=== PATIENT | female | born 1990 | race Caucasian/White ===

== ENCOUNTER 2020-05-24 00:55 | Emergency (ER) | payer SELFPAY ==
[2020-05-24 01:58] LABS: Urine Blood NEGATIVE (NEG); Urine Glucose NEGATIVE (NEG); Urine Protein NEGATIVE (NEG); Urine pH 5.5 (5.0-7.0)
[2020-05-24 02:08] LABS: Barbiturates NEGATIVE (NEGATIVE); Benzodiazepines NEGATIVE (NEGATIVE); Cocaine NEGATIVE (NEGATIVE); METHAMPHETAM POSITIVE (NEGATIVE); Methadone NEGATIVE (NEGATIVE); Opiates NEGATIVE (NEGATIVE); Phencyclidine NEGATIVE (NEGATIVE); THC Cannibis POSITIVE (NEGATIVE)
[2020-05-24 02:35] LABS: Absolute Lymphocytes (CBC) 3.3 K/uL (0.7-4.9); Basophils % 0.8 % (0-1.3); Hematocrit 41.3 % (36.0-45.0); Lymphocytes % 39.6 % (15.3-44.8); RBC Red Blood Cell Count 4.74 M/uL (3.86-4.86)
[2020-05-24 02:46] LABS: Protime INR 0.99
[2020-05-24 03:01] LABS: ALT/SGPT 27 U/L (12-78); AST/SGOT 18 U/L (15-37); Albumin 4.5 g/dL (3.4-5.0); Alkaline Phosphatase 83 U/L (45-117); BUN Blood Urea Nitrogen 17 mg/dL (7-18); Bicarbonate 29 mmol/L (21-32); Bilirubin Direct 0.2 mg/dL (0-0.2); Bilirubin Total 0.6 mg/dL (0.2-1.0); Glucose Level 86 mg/dL (74-106); Potassium 3.4 mmol/L (3.5-5.1); Protein, Total 8.7 g/dL (6.4-8.2); Sodium Level 138 mmol/L (136-145)
--- NOTE | 2020-05-24 03:19 | ER ---
Nurse's Notes [facility] Name: Donal Langston Age: 30 yrs Sex: Female : 1990 Arrival Date: 05/24/2020 Time: 01:03 Bed 16 Private MD: Diagnosis: Presentation: 05/24 01:17 Chief complaint:. Chief complaint: mental health deputy reports pt was found wandering em around [place] stating her sister and nephew was missing, mental health deputy reports that no one is missing, pt reports needing mental help, had some SI but has no plan at this time, pt is voluntary, has hx of using meth and marijuana, last used both yesterday morning at 8 AM. Coronavirus screen: Client denies travel out of the [place] in the last 14 days. Ebola Screen: Patient negative for fever greater than or equal to 101.5 degrees Fahrenheit, and additional compatible Ebola Virus Disease symptoms Patient denies exposure to infectious person. Patient denies travel to an Ebola-affected area in the 21 days before illness onset. No symptoms or risks identified at this time. Initial Sepsis Screen: Does the patient meet any 2 criteria? No. Patient's initial sepsis screen is negative. Does the patient have a suspected source of infection? No. Patient's initial sepsis screen is negative. Risk Assessment: Do you want to hurt yourself or someone else? Patient reports no desire to harm self or others. Onset of symptoms was May 24, 2020. 01:17 Method Of Arrival: Law Enforcement: mental health deputy em 01:17 Acuity: DELIA 2 em Historical: - Allergies: 01:22 No Known Allergies; em - Home Meds: 01:22 None [Active]; em - PMHx: 01:22 None; em - PSHx: 01:22 None; em - Immunization history:: Adult Immunizations up to date. - Social history:: Smoking status: Patient reports the use of cigarette tobacco products, smokes one-half pack cigarettes per day, Patient uses street drugs, marijuana, Methamphetamine (Meth) Patient/guardian denies using alcohol, The patient lives on the [address], The patient is unemployed. - Family history:: not pertinent. Screenin:50 Abuse screen: Denies threats or abuse. Denies injuries from another. Nutritional sf screening: No deficits noted. Tuberculosis screening: No symptoms or risk factors identified. Never had TB. Possible symptoms: None Risk factors: None. Fall Risk None identified. No fall in past 12 months (0 pts). No secondary diagnosis (0 pts). No IV (0 pts). Ambulatory Aid- None/Bed Rest/Nurse Assist (0 pts). Gait- Normal/Bed Rest/Wheelchair (0 pts) Mental Status- Oriented to own ability (0 pts). Total Reeves Fall Scale indicates No Risk (0-24 pts). Assessment: 01:50 General: Appears unkempt, Behavior is cooperative, anxious, restless, Smells of body sf odor. Denies feeling ill. Pain: Denies pain. Neuro: No deficits noted. Level of Consciousness is awake, alert, Oriented to person, place, time, situation. Cardiovascular: No deficits noted. Patient's skin is warm and dry. Respiratory: No deficits noted. Airway is patent Respiratory effort is even, unlabored, Respiratory pattern is regular, symmetrical. GI: No signs and/or symptoms were reported involving the gastrointestinal system. : No signs and/or symptoms were reported regarding the genitourinary system. Derm: No signs and/or symptoms reported regarding the dermatologic system. 03:00 Reassessment: Patient allowed to call family from nurse's station phone. 03:14 Reassessment: Patient grabbed a bag of belongings from nurse's station and ambulated sf out of the department wearing a gown without difficulty, attempted to stop patient to no avail. Patient left clothing behind. Clothing that was left given to security when they are available. Vital Signs: 01:17 BP 123 / 97; Pulse 76; Resp 18; Temp 98.3(O); Pulse Ox 100% on R/A; Weight 52.16 kg; em Height 5 ft. 3 in. (160.02 cm); Pain 0/10; 01:17 Body Mass Index 20.37 (52.16 kg, 160.02 cm) em ED Course: 01:03 Patient arrived in ED. mw2 01:04 Dev Pickering MD is Attending Physician. ma2 01:21 Triage completed. em 01:22 Arm band placed on. em 01:43 Ameya Van RN is Primary Nurse. sf 01:50 Patient has correct armband on for positive identification. Placed in gown. Bed in low sf position. Call light in reach. Door closed. Noise minimized. Visitors limited. Lights dimmed. 01:50 Initial lab(s) drawn, by me, sent to lab. sf 01:50 No provider procedures requiring assistance completed. sf 02:10 Missed attempt(s): 20 gauge in left antecubital area. 22 gauge in left antecubital area.tt3 02:13 Urine --Ancillary (enter results) Sent. sf 02:13 Urine Dipstick--Ancillary (enter results) Sent. sf Administered Medications: No medications were administered Outcome: 03:18 Patient left the ED. sf Signatures: Rocky Aranda RN RN Dev Pickering MD MD ma2 Jhonny Fernandez2 William Fraser tt3 Ameya Van RN RN sf Corrections: (The following items were deleted from the chart) 03:04 01:38 Social history: Patient/guardian denies using alcohol, street drugs, ma2 sf
--- NOTE | 2020-05-24 03:19 | EDPHYS ---
Physician Documentation [facility] Name: Donal Langston Age: 30 yrs Sex: Female : 1990 Arrival Date: 05/24/2020 Time: 01:03 Bed 16 Private MD: ED Physician Dev Pickering HPI: 05/24 01:38 This 30 yrs old Female presents to ER via Law Enforcement with complaints of suicidal ma2 ideation . 01:38 Onset: The symptoms/episode began/occurred gradually, 1 week(s) ago. Associated signs ma2 and symptoms: Pertinent negatives: ataxia, chest pain. Current symptoms: In the emergency department the patient's symptoms are unchanged from the initial presentation. The patient has experienced similar episodes in the past. Historical: - Allergies: : No Known Allergies; em - Home Meds: : None [Active]; em - PMHx: :22 None; em - PSHx: :22 None; em - Immunization history:: Adult Immunizations up to date. - Social history:: Smoking status: Patient reports the use of cigarette tobacco products, smokes one-half pack cigarettes per day, Patient uses street drugs, marijuana, Methamphetamine (Meth) Patient/guardian denies using alcohol, The patient lives on the [address], The patient is unemployed. - Family history:: not pertinent. ROS: 01:38 Constitutional: Negative for fever, chills, and weight loss. ma2 01:38 All other systems are negative. Exam: 01:38 Constitutional: This is a well developed, well nourished patient who is awake, alert, ma2 and in no acute distress. Chest/axilla: Normal chest wall appearance and motion. Nontender with no deformity. No lesions are appreciated. Cardiovascular: Regular rate and rhythm with a normal S1 and S2. No gallops, murmurs, or rubs. Normal PMI, no JVD. No pulse deficits. Respiratory: Lungs have equal breath sounds bilaterally, clear to auscultation and percussion. No rales, rhonchi or wheezes noted. No increased work of breathing, no retractions or nasal flaring. Abdomen/GI: Soft, non-tender, with normal bowel sounds. No distension or tympany. No guarding or rebound. No evidence of tenderness throughout. MS/ Extremity: Pulses equal, no cyanosis. Neurovascular intact. Full, normal range of motion. Neuro: Awake and alert, GCS 15, oriented to person, place, time, and situation. Cranial nerves II-XII grossly intact. Motor strength 5/5 in all extremities. Sensory grossly intact. Cerebellar exam normal. Normal gait. 04:11 Psych: Behavior/mood is suicidal. [facility] [place] 04:11 Psych: Behavior/mood is 04:11 Psych: Behavior/mood is anxious, depressed, Delusions/hallucinations no si. Vital Signs: 01:17 BP 123 / 97; Pulse 76; Resp 18; Temp 98.3(O); Pulse Ox 100% on R/A; Weight 52.16 kg; em Height 5 ft. 3 in. (160.02 cm); Pain 0/10; 01:17 Body Mass Index 20.37 (52.16 kg, 160.02 cm) em MDM: 01:38 Differential Diagnosis: electrolyte abnormality, alcohol intoxication, volume ma2 depletion, si. 04:11 Data reviewed: vital signs, nurses notes. Data reviewed: vital signs, nurses notes. [facility] [place] 04:[address] [facility] [place] 05/24 01:04 Order name: Acetaminophen [facility] [place] 05/24 01:04 Order name: Basic Metabolic Panel [facility] [place] 05/24 01:04 Order name: CBC with Diff [facility] [place] 05/24 01:04 Order name: ETOH Level [facility] [place] 05/24 01:04 Order name: Hepatic Function [facility] [place] 05/24 01:04 Order name: PT-INR [facility] [place] 05/24 01:04 Order name: Ptt, Activated [facility] [place] 05/24 01:04 Order name: Salicylate [facility] [place] 05/24 01:04 Order name: Urine Drug Screen [facility] [place] 05/24 01:45 Order name: Urine Dipstick--Ancillary (enter results) [facility] 05/24 01:45 Order name: Urine --Ancillary (enter results) [facility] 05/24 01:46 Order name: Urine Dipstick-Ancillary; Complete Time: 01:58 EDMS 05/24 01:46 Order name: Urine --Ancillary; Complete Time: 01:58 EDMS 05/24 01:04 Order name: Urine Test (obtain specimen); Complete Time: 01:42 [facility] [place] 05/24 01:04 Order name: EKG; Complete Time: 01:06 [facility] [place] 05/24 01:04 Order name: EKG - Nurse/Tech; Complete Time: 03:00 [facility] [place] 05/24 01:04 Order name: Urine Dipstick-Ancillary (obtain specimen); Complete Time: 01:42 [facility] [place] Administered Medications: No medications were administered Disposition: 05/24/20 03:18 Patient left the facility after being seen by provider. - Patient left due to (see nurse's notes). Signatures: Dispatcher [employer] [facility] Rocky Aranda RN RN Dev Pickering MD MD [facility] [place] Ameya Van RN RN sf Corrections: (The following items were deleted from the chart) 02:59 01:08 CORONAVIRUS+.VALERYZ ordered. [facility] 03:04 01:38 Social history: Patient/guardian denies using alcohol, street drugs, [facility] [place] sf 04:13 01:38 Constitutional: This is a well developed, well nourished patient who is awake, ma2 alert, and in no acute distress. Chest/axilla: Normal chest wall appearance and motion. Nontender with no deformity. No lesions are appreciated. Cardiovascular: Regular rate and rhythm with a normal S1 and S2. No gallops, murmurs, or rubs. Normal PMI, no JVD. No pulse deficits. Respiratory: Lungs have equal breath sounds bilaterally, clear to auscultation and percussion. No rales, rhonchi or wheezes noted. No increased work of breathing, no retractions or nasal flaring. Abdomen/GI: Soft, non-tender, with normal bowel sounds. No distension or tympany. No guarding or rebound. No evidence of tenderness throughout. MS/ Extremity: Pulses equal, no cyanosis. Neurovascular intact. Full, normal range of motion. Neuro: Awake and alert, GCS 15, oriented to person, place, time, and situation. Cranial nerves II-XII grossly intact. Motor strength 5/5 in all extremities. Sensory grossly intact. Cerebellar exam normal. Normal gait. [facility] [place] 04:13 01:38 Psych: Behavior/mood is suicidal, depressed, Oriented to person, place, time, ma2 Patient has no thoughts/intents to harm self or others. Judgement / Insight is normal. [facility] [place]
[2020-05-24 03:25] VITALS: BP 123/97; TEMP 98.3; O2SAT 100
--- NOTE | 2020-05-24 06:49 | EKG ---
Test Date: 2020-05-24 Test Time: 02:30:38 Die Sinking Machine Operator: TLT MEASUREMENT RESULTS: Intervals: Rate: 82 WI: QRSD: 114 QT: 448 QTc: 523 Poyen: P: WI: QRS: 80 T: 83 INTERPRETIVE STATEMENTS: Atrial fibrillation Anteroseptal infarct, age undetermined Prolonged QT Abnormal ECG No previous ECG available for comparison Electronically Signed On 05-24-20 06:49:00 THEATRE PROFESSOR by Micha Farias
== END 2020-05-24 03:18 | disposition left against medical advice (07) ==
LOC: ER 00:55
DX: R45.851 Suicidal ideations (principal); F17.210 Nicotine dependence, cigarettes, uncomplicated; Z20.822 Contact with and (suspected) exposure to COVID-19
CPT/HCPCS: 36415; 80048; 80076; 80307; 80320; 80329; 81003; 81025; 85025; 85610; 85730; 93005; 99282; U0003

== ENCOUNTER 2020-05-24 15:53 | Emergency (ER) | payer SELFPAY ==
--- NOTE | 2020-05-24 16:11 | EDPHYS ---
Physician Documentation [facility] Name: Donal Langston Age: 30 yrs Sex: Female : 1990 Arrival Date: 05/24/2020 Time: 15:59 Bed 25 Private MD: ED Physician Tashi Cooper HPI: 05/24 16:06 This 30 yrs old Female presents to ER via Unassigned with complaints of anxiety. jmm 16:06 The patient presents to the emergency department with anxiety. Onset: The jmm symptoms/episode began/occurred 1 day(s) ago. The patient has not experienced similar symptoms in the past. This is a 30 year old female with no known chronic medical conditions that presents to the ED with complaints of anxiety secondary to an undisclosed action she had performed in the past. Patient was evaluated yesterday and left AMA. Denies SI or HI. Historical: - Allergies: 16:23 No Known Allergies; vg1 - Immunization history:: Adult Immunizations up to date. ROS: 16:06 Constitutional: Negative for fever, chills, and weight loss, Cardiovascular: Negative jmm for chest pain, palpitations, and edema, Respiratory: Negative for shortness of breath, cough, wheezing, and pleuritic chest pain. 16:06 Psych: Positive for anxiety. 16:06 All other systems are negative. Exam: 16:06 Constitutional: This is a well developed, well nourished patient who is awake, alert, jmm and in no acute distress. Head/Face: atraumatic. Eyes: EOMI, no conjunctival erythema appreciated ENT: Moist Mucus Membranes Neck: Trachea midline, Supple Chest/axilla: Normal chest wall appearance and motion. Cardiovascular: Regular rate and rhythm. No edema appreciated Respiratory: Normal respirations, no respiratory distress appreciated Abdomen/GI: Non distended, soft Back: Normal ROM Skin: General appearance color normal MS/ Extremity: Moves all extremities, no obvious deformities appreciated, no edema noted to the lower extremities Neuro: Awake and alert, normal gait 16:06 Psych: Behavior/mood is pleasant, cooperative, anxious. Vital Signs: 16:19 BP 112 / 75; Pulse 79; Resp 16; Temp 98.4; Pulse Ox 100% on R/A; vg1 MDM: 16:02 Patient medically screened. [facility] 16:09 Data reviewed: vital signs, nurses notes. Counseling: I had a detailed discussion with kandy the patient and/or guardian regarding: the historical points, exam findings, and any diagnostic results supporting the discharge/admit diagnosis, the need for outpatient follow up, to return to the emergency department if symptoms worsen or persist or if there are any questions or concerns that arise at home. ED course: Patient is alert and non toxic in appearance in the ED. Denies SI or HI. Patient given information for psychiatric follow up. Patient is otherwise given strict return precautions. Patient understood and agrees with the plan of care. . Administered Medications: No medications were administered Disposition: 18:52 Co-signature as Attending Physician, Tashi Cooper MD I agree with the assessment and tw4 plan of care. Disposition: 05/24/20 16:11 Discharged to Home. Impression: Person with feared health complaint in whom no diagnosis is made. - Condition is Stable. - Medication Reconciliation Form, Thank You Letter, Antibiotic Education, Prescription Opioid Use form. - Follow up: Private Physician; When: 2 - 3 days; Reason: Recheck today's complaints, Continuance of care, Re-evaluation by your physician. Follow up: Baldo Martinez MD; When: As needed; Reason: Recheck today's complaints, Continuance of care, Re-evaluation by your physician. Signatures: Juma Lewis PA PA jmm Wadley, Terrence, MD MD tw4 Sheila Ortiz, RN RN vg1 Corrections: (The following items were deleted from the chart) 16:12 16:11 05/24/2020 16:11 Discharged to Home. Impression: Person with feared health [facility] complaint in whom no diagnosis is made. Condition is Stable. Forms are Medication Reconciliation Form, Thank You Letter, Antibiotic Education, Prescription Opioid Use. Follow up: Private Physician; When: 2 - 3 days; Reason: Recheck today's complaints, Continuance of care, Re-evaluation by your physician. [facility] 16:30 16:12 05/24/2020 16:11 Discharged to Home. Impression: Person with feared health vg1 complaint in whom no diagnosis is made. Condition is Stable. Forms are Medication Reconciliation Form, Thank You Letter, Antibiotic Education, Prescription Opioid Use. Follow up: Private Physician; When: 2 - 3 days; Reason: Recheck today's complaints, Continuance of care, Re-evaluation by your physician. Follow up: Baldo Martinez; When: As needed; Reason: Recheck today's complaints, Continuance of care, Re-evaluation by your physician. kandy
--- NOTE | 2020-05-24 16:31 | ER ---
Nurse's Notes [facility] Name: Donal Langston Age: 30 yrs Sex: Female : 1990 Arrival Date: 05/24/2020 Time: 15:59 Bed 25 Private MD: Diagnosis: Person with feared health complaint in whom no diagnosis is made Presentation: 05/24 16:19 Chief complaint: EMS states: Patient was seen by police officers walking around. Police vg1 called EMS. EMS stated patient was seen last admitted last night and left AMA. Was seen for psych and visual hallucinations. Coronavirus screen: Client denies travel out of the [place] in the last 14 days. Ebola Screen: Patient negative for fever greater than or equal to 101.5 degrees Fahrenheit, and additional compatible Ebola Virus Disease symptoms. Initial Sepsis Screen: Does the patient meet any 2 criteria? No. Patient's initial sepsis screen is negative. Does the patient have a suspected source of infection? No. Patient's initial sepsis screen is negative. Risk Assessment: Do you want to hurt yourself or someone else? Patient reports no desire to harm self or others. Onset of symptoms was May 24, 2020. 16:19 Method Of Arrival: EMS: [facility] vg1 16:19 Acuity: DELIA 5 vg1 Triage Assessment: 16:23 General: Appears in no apparent distress. comfortable, Behavior is calm, cooperative. vg1 Pain: Denies pain. EENT: No deficits noted. Neuro: Level of Consciousness is awake, alert, obeys commands, Oriented to person, place, time, situation. Cardiovascular: Patient's skin is warm and dry. Respiratory: Airway is patent Respiratory effort is even, unlabored. Derm: Skin is intact, is healthy with good turgor. Musculoskeletal: Circulation, motion, and sensation intact. Historical: - Allergies: 16:23 No Known Allergies; vg1 - Immunization history:: Adult Immunizations up to date. Screenin:23 Abuse screen: Denies threats or abuse. Nutritional screening: No deficits noted. vg1 Tuberculosis screening: No symptoms or risk factors identified. Fall Risk None identified. Assessment: 16:24 Reassessment: See triage note. vg1 Vital Signs: 16:19 BP 112 / 75; Pulse 79; Resp 16; Temp 98.4; Pulse Ox 100% on R/A; vg1 ED Course: 15:59 Patient arrived in ED. 16:01 Juma Lewis PA is PHCP. [facility] 16:01 Tashi Cooper MD is Attending Physician. [facility] 16:01 Sheila Ortiz, RN is Primary Nurse. vg1 16:12 Baldo Martinez MD is Referral Physician. [facility] 16:22 Triage completed. vg1 16:23 Patient has correct armband on for positive identification. Placed in gown. Bed in low vg1 position. Call light in reach. Side rails up X 1. 16:30 No provider procedures requiring assistance completed. Patient did not have IV access vg1 during this emergency room visit. Administered Medications: No medications were administered Outcome: 16:11 Discharge ordered by . [facility] 16:30 Discharged to home ambulatory. vg1 16:30 Condition: good 16:30 Discharge instructions given to patient, Instructed on discharge instructions, follow up and referral plans. Demonstrated understanding of instructions, follow-up care. 16:30 Patient left the ED. vg1 Signatures: Juma Lewis PA PA jmm Smirch, Shelby, JADON RN Sheila Ortiz, RN RN vg1
[2020-05-24 16:36] VITALS: BP 112/75; TEMP 98.4; O2SAT 100
== END 2020-05-24 16:30 | disposition home or self-care (01) ==
LOC: ER 15:53
DX: R69 Illness, unspecified (principal); Z53.21 Procedure and treatment not carried out due to patient leaving prior to being seen by health care provider
CPT/HCPCS: 99283

== ENCOUNTER 2021-05-04 22:47 | Emergency (ER) | payer OTHER, SELFPAY ==
--- OUTSIDE RECORDS SUMMARY | 2021-05-04 22:50 | XMS REPORT | Continuity of Care Document ---
:1990 Author Organization [facility] t Address [address] [place] [address] Care Team Providers Name Role Phone Livan Wagner Primary Care Physician JASON Attending Clinician Unavailable Alyson SILVA Attending Clinician Unavailable Alyson Silva MD Attending Clinician Sascha TALBOT Attending Clinician SASCHA Attending Clinician Unavailable Payers Payer Name Policy Type Policy Number Effective Date Expiration Date S ource Problems This patient has no known problems. Allergies, Adverse Reactions, Alerts Allergy Allergy Status Severity Reaction(s) Onset Inactive Treating Comm ents Source Name Type Date Date Clinician NO KNOWN Drug Active Univers ALLERGIE Class ity of [facility] Social History Social Habit Start Date Stop Date Quantity Comments Source Exposure to Not sure [facility] SARS-CoV-2 (event) Medica l Branch Sex Assigned At [birth year] [facility] 00:00:00 00:00:00 [facility] Smoking Status Start Date Stop Date Source Unknown if ever smoked [facility] Medications Ordered Filled Start Stop Current Ordering Indication Dosage Frequency Signature Comments Components Source Medication Medication Date Date Medication? Clinician (SIG) Name Name No known 2020-03 No Univers medications 04-15 ity of 20:48: [address] NaCl 0.9% 1000mL at 999 Uni vers (NS) bolus 3-13 03-13 mL/hr, ity of infusion 20:45: 22:16 1,000 mL, Candido as 1,000 mL 00 :00 IV Medical Infusion, Branch ONCE, 1 dose, 05/25/20 at 1445, STAT Vital Signs Vital Name Observation Time Observation Value Comments Source Systolic blood 2021-02-13 02:47:00 124 mm[Hg] Univer [facility] of [facility] Diastolic blood 2021-02-13 02:47:00 84 mm[facility]Hg[facility] 2021-02-13 02:47:00 73 /min [facility] Body temperature 2021-02-13 02:47:00 36.72 Sara [facility] Res[facility] rate 2021-02-13 02:47:00 18 /min [facility] Body height 2021-02-13 02:47:00 160 cm [facility] Body weight 2021-02-13 02:47:00 56.7 kg [facility] BMI 2021-02-13 02:47:00 22.14 kg/m2 [facility] Oxygen saturation in 2021-02-13 02:47:00 100 /min University of Arterial blood by [facility] Pulse oximetry Branch Systolic blood 2020-05-25 21:00:00 102 mm[Hg] Univer sity [facility] Diastolic blood 2020-05-25 21:00:00 64 mm[Hg] [facility] Heart rate 2020-05-25 21:00:00 81 /min [facility] Respiratory rate 2020-05-25 21:00:00 14 /min Univ [facility] Oxygen saturation in 2020-05-25 21:00:00 100 /min [facility] of Arterial blood by [facility] Pulse oximetry Branch Body temperature 2020-05-25 19:37:00 36.33 [facility] Body weight 2020-05-25 19:37:00 52.164 kg [facility] Procedures Procedure Date / Time Performed Performing Clinician Sourc e LIPASE 2021-02-13 03:00:00 Pedro Silva [facility] TROPONIN I 2021-02-13 03:00:00 Pedro Silva [facility] COMP. METABOLIC PANEL 2021-02-13 03:00:00 Pedro Silva [facility] ([id number]) Medical Branch CBC WITH DIFF 2021-02-13 03:00:00 Pedro Silva [facility] NOTICE OF PRIVACY 2021-02-13 02:33:01 Doctor Unassigned, No Univ [facility] PRACTICES Name [facility] CONSENT/REFUSAL FOR 2021-02-13 02:32:44 Doctor Unassigned, No [facility] DIAGNOSIS AND Name [facility] TREATMENT POCT TEST 2020-05-25 22:03:00 Salud Pinzon [facility] CREATINE KINASE 2020-05-25 20:10:00 Sascha [facility] LIPASE 2020-05-25 20:10:00 Sascha [facility] MAGNESIUM 2020-05-25 20:10:00 [facility] HEPATIC FUNCTION 2020-05-25 20:10:00 Sascha [facility] PANEL ([id number]) [facility] (ALB,T.PRO,BILI T,BU/BC,ALT,AST,ALK PHOS) BASIC METABOLIC PANEL 2020-05-25 20:10:00 Salud Pinzon [facility] (NA, K, CL, CO2, Medical Branch GLUCOSE, BUN, CREATININE, CA) CBC WITH DIFF 2020-05-25 20:10:00 [facility] Encounters Start End Encounter Admission Attending Care Care Encounter Source Date/Time Date/Time Type Type Clinicians Facility Department ID 2020-11-26 Outpatient A[facility] [id number] [facility] 19:24:14 HARISH 2021-02-12 2021-02-12 Emergency X [facility] ERT [id number] Univers 20:51:00 23:13:00 PEDRO kauffman [facility] 2021-02-12 2021-02-12 Emergency [facility] [id number] Univers 20:51:00 23:13:00 [facility] [id number] daly [facility] [id number] [facility] [id number] [place] [address] Branch 2020-05-25 2020-05-25 Emergency [facility] [id number] Univers 13:31:00 16:18:00 Salud [place] [id number] [place] [id number] [facility] [id number] [address] 2020-05-25 2020-05-25 Emergency [facility] [id number] Univers 13:31:00 13:31:00 SALUD aleamonalisa [facility] Results Test Description Test Time Test Comments Results Result Comments Source TROPONIN I 2021-02-13 03:46:48 Test Item Value Reference Range Interpretation Comme nts TROPONIN I (test code = 0.000 ng/mL See_Comment [Au tomated message] The 5678569290) system which ge nerated this result tra nsmitted reference range : <=0.034. The reference r jagdeep was not used to int erpret this result as normal/abnormal . KARLA (test code = KARLA) Reference (Normal) Range (defined by the 99th percentile reference limit): <= 0.034 ng/mL Note: Cardiac troponin begins to rise 3-4 hours after the onset of ischemia. Repeat in 4-6 hours if the sample was drawn within 3-4 hours of the onset of the symptom and found normal. Diagnosis of myocardial injury is made with acute changes in cTn concentrations with at least one serial sample above the 99th percentile upper reference limit (URL), taken together with the patient's clinical presentation. Biotin has been reported to cause a negative bias, interpret results relative to patient's use of biotin. Lab Interpretation Normal (test code = 93550-7) [facility] ([id number])2021-02-13 03:37:12 Test Item Value Reference Range Interpretation Comments NA (test code = 136 mmol/L 135-145 8288216070) K (test code = 4.2 mmol/L 3.5-5.0 0740926320) CL (test code = 101 mmol/L 98-108 1291077290) CO2 TOTAL (test code 30 mmol/L 23-31 = 5888862373) AGAP (test code = 2-16 6246999102) BUN (test code = 13 mg/dL 7-23 0913162109) GLUCOSE (test code = 100 mg/dL 70-110 4461686441) CREATININE (test code 0.80 mg/dL 0.50-1.04 = 7313998625) TOTAL BILI (test code 0.3 mg/dL 0.1-1.1 = 4069264336) CALCIUM (test code = 9.5 mg/dL 8.6-10.6 4623248940) T PROTEIN (test code 7.1 g/dL 6.3-8.2 = 7448183352) ALBUMIN (test code = 4.3 g/dL 3.5-5.0 3949848030) ALK PHOS (test code = 51 U/L 34-122 8443445277) ALTv (test code = 10 U/L 5-35 2-6) AST(SGOT) (test code 21 U/L 13-40 = 0810170741) eGFR (test code = mL/min/1.73m2 3595881026) KARLA (test code = KARLA) Association of Glomerular Filtration Rate (GFR) and Staging of Kidney Disease* + + +- +| GFR (mL/min/1.73 m2) ?| With Kidney Damage ?| ?Without Kidney Damage+ ------+ ----+ ------+| ?>90 ?| ?Stage one ?| ? Normal ?+ -+ + -+| ?60-89 ?| ?Stage two ?| ? Decreased GFR ? + + +- +| ?30-59 ?| ?Stage three ?| ? Stage three ? + + +- +| ?15-29 ?| ?Stage four ? | ? Stage four ?+ -+ + -+| ?<15 (or dialysis) ? ?| ?Stage five ? | ? Stage five ?+ -+ + -+ *Each stage assumes the associated GFR level has been in effect for at least three months. ?Stages 1 to 5, with or without kidney disease, indicate chronic kidney disease. Notes: Determination of stages one and two (with eGFR >59mL/min/1.73 m2) requires estimation of kidney damage for at least three months as defined by structural or functional abnormalities of the kidney, manifested by either:Pathological abnormalities or Markers of kidney damage (including abnormalities in the composition of the blood or urine or abnormalities in imaging tests). [facility], [id number] 03:37:11 Test Item Value Reference Range Interpretation Comments LIPASE (test code = 3326115581) 77 U/L 0-220 Lab Interpretation (test code = Normal 95959-4) [facility] [id number] 03:15:25 Test Item Value Reference Range Interpretation Comments WBC (test code = See_Comment [Automated 6690-2) message] The sy stem which generated this result transmitted reference range : 4.30 - 11.10 10*3/?L. The reference range was not used to interpret this result as normal/abnormal . RBC (test code = See_Comment [Automated 789-8) message] The sy stem which generated this result transmitted reference range : 3.93 - 5.25 10*6/?L. The reference range was not used to interpret this result as normal/abnormal . HGB (test code = 12.2 g/dL 11.6-15.0 718-7) HCT (test code = 37.3 % 35.7-45.2 4544-3) MCV (test code = 91.0 fL 80.6-95.5 787-2) MCH (test code = 29.8 pg 25.9-32.8 785-6) MCHC (test code = 32.7 g/dL 31.6-35.1 786-4) RDW-SD (test code = 38.6 fL 39.0-49.9 L 50176-5) RDW-CV (test code = 11.6 % 12.0-15.5 L 788-0) PLT (test code = See_Comment [Automated 777-3) message] The sy stem which generated this result transmitted reference range : 166 - 358 10*3/ ?L. The reference r jagdeep was not used to interpret this result as normal/abnormal . MPV (test code = 11.2 fL 9.5-12.9 83932-0) NRBC/100 WBC (test See_Comment [Automat ed code = 8119498433) message] The system which generated this result transmitted reference range : 0.0 - 10.0 /100 WBCs. The refer ence range was not u sed to interpret th is result as normal/abnormal . NRBC x10^3 (test code <0.01 See_Comment [Auto mated = 2759858142) message] The s ystem which generated this result transmitted reference range : 10*3/?L. The reference range was not used to interpret this result as normal/abnormal . GRAN MAT (NEUT) % 56.6 % (test code = 770-8) IMM GRAN % (test code 0.30 % = 2448652227) LYMPH % (test code = 30.3 % 736-9) MONO % (test code = 10.3 % 5905-5) EOS % (test code = 2.0 % 713-8) BASO % (test code = 0.5 % 706-2) GRAN MAT x10^3(ANC) 4.34 10*3/uL 1.88-7.09 (test code = 9594044861) IMM GRAN x10^3 (test <0.03 0.00-0.06 code = 0325255086) LYMPH x10^3 (test code 2.32 10*3/uL 1.32-3.29 = 731-0) MONO x10^3 (test code 0.79 10*3/uL 0.33-0.92 = 742-7) EOS x10^3 (test code = 0.15 10*3/uL 0.03-0.39 711-2) BASO x10^3 (test code 0.04 10*3/uL 0.01-0.07 = 704-7) Lab Interpretation Abnormal (test code = 23478-0) [facility] [id number] 22:03:00 Test Item Value Reference Range Interpretation Comments POCT PREG (test code = 1605) negative On board controls acceptable with positive C Line (test code = 3574) POCT PREG LOT # (test code = 3575) [id number] POCT PREG TEST DATE (test 01-12-2022 code = 3576) Lab Interpretation (test code = Normal 98364-5) [facility] (ALB, T.PRO, BILI T, BU/BC, ALT, AST, ALK PHOS)2020-05-25 20:35:00 Test Item Value Reference Range Interpretation Comments TOTAL BILI (test code = 1178264761) 0.8 mg/dL 0.1-1.1 BILI UNCON (test code = 2585099800) 0.7 mg/dL 0.1-1.1 BILI CONJ (test code = 4965428126) 0.0 mg/dL 0.0-0.3 T PROTEIN (test code = 4329477515) 7.4 g/dL 6.3-8.2 ALBUMIN (test code = 8865900978) 4.6 g/dL 3.5-5.0 ALK PHOS (test code = 8449562060) 59 U/L 34-122 ALTv (test code = 1742-6) 14 U/L 5-35 AST(SGOT) (test code = 6242189661) 31 U/L 13-40 Lab Interpretation (test code = Normal 81131-1) [facility]2021-03-13 20:35:00 Test Item Value Reference Range Interpretation Comments MAGNESIUM (test code = 4782702228) 1.7 mg/dL 1.7-2.4 Lab Interpretation (test code = Normal 59277-9) [facility] (NA, K, CL, CO2, GLUCOSE, BUN, CREATININE, CA)2020-05-25 20:34:40 Test Item Value Reference Range Interpretation Comments NA (test code = 138 mmol/L 135-145 2491623739) K (test code = 4.1 mmol/L 3.5-5.0 8386417900) CL (test code = 105 mmol/L 98-108 7621491773) CO2 TOTAL (test code = 26 mmol/L 23-31 8464655699) AGAP (test code = 2-16 6315859174) BUN (test code = 13 mg/dL 7-23 7792943196) GLUCOSE (test code = 88 mg/dL 70-110 2747809095) CREATININE (test code 0.68 mg/dL 0.50-1.04 = 5869327646) CALCIUM (test code = 8.7 mg/dL 8.6-10.6 3544127061) eGFR Calculation mL/min/1.73m2 (Non-) (test code = 1706014260) eGFR Calculation mL/min/1.73m2 () (test code = 9606988604) KARLA (test code = KARLA) Association of Glomerular Filtration Rate (GFR) and Staging of Kidney Disease* + -+ + ---+| GFR (mL/min/1.73 m2) ?| With Kidney Damage ?| ?Without Kidney Damage+ -------+ ------+ ---------+| ?>90 ?| ?Stage one ?| ? Normal ?+ --+ -+ ----+| ?60-89 ?| ?Stage two ?| ? Decreased GFR ? + -+ + ---+| ?30-59 ?| ?Stage three ?| ? Stage three ? + -+ + ---+| ?15-29 ?| ?Stage four ? | ? Stage four ?+ --+ -+ ----+| ?<15 (or dialysis) ? ?| ?Stage five ? | ? Stage five ?+ --+ -+ ----+ *Each stage assumes the associated GFR level has been in effect for at least three months. ?Stages 1 to 5, with or without kidney disease, indicate chronic kidney disease. Notes: Determination of stages one and two (with eGFR >59mL/min/1.73 m2) requires estimation of kidney damage for at least three months as defined by structural or functional abnormalities of the kidney, manifested by either:Pathological abnormalities or Markers of kidney damage (including abnormalities in the composition of the blood or urine or abnormalities in imaging tests). [facility] HospitalLip[facility] [id number] 20:34:40 Test Item Value Reference Range Interpretation Comments LIPASE (test code = 3218525940) 165 U/L 0-220 Lab Interpretation (test code = Normal 72605-4) [facility] HospitalCREATINE [id number] 20:34:40 Test Item Value Reference Range Interpretation Comments CK (test code = 7236175164) 128 U/L 33-194 Lab Interpretation (test code = Normal 30796-7) [facility] Hospital[facility] with [id number] 20:23:34 Test Item Value Reference Range Interpretation Comments WBC (test code = See_Comment [Automated 6690-2) message] The sy stem which generated this result transmitted reference range : 4.30 - 11.10 10*3/?L. The reference range was not used to interpret this result as normal/abnormal . RBC (test code = See_Comment L [Automated 789-8) message] The sy stem which generated this result transmitted reference range : 3.93 - 5.25 10*6/?L. The reference range was not used to interpret this result as normal/abnormal . HGB (test code = 11.4 g/dL 11.6-15.0 L 718-7) HCT (test code = 34.6 % 35.7-45.2 L 4544-3) MCV (test code = 88.3 fL 80.6-95.5 787-2) MCH (test code = 29.1 pg 25.9-32.8 785-6) MCHC (test code = 32.9 g/dL 31.6-35.1 786-4) RDW-SD (test code = 38.5 fL 39.0-49.9 L 93507-3) RDW-CV (test code = 11.9 % 12.0-15.5 L 788-0) PLT (test code = See_Comment [Automated 777-3) message] The sy stem which generated this result transmitted reference range : 166 - 358 10*3/ ?L. The reference r jagdeep was not used to interpret this result as normal/abnormal . MPV (test code = 11.2 fL 9.5-12.9 03034-1) NRBC/100 WBC (test See_Comment [Automat ed code = 1964828574) message] The system which generated this result transmitted reference range : 0.0 - 10.0 /100 WBCs. The refer ence range was not u sed to interpret th is result as normal/abnormal . NRBC x10^3 (test code <0.01 See_Comment [Auto mated = 8203715792) message] The s ystem which generated this result transmitted reference range : 10*3/?L. The reference range was not used to interpret this result as normal/abnormal . GRAN MAT (NEUT) % 64.4 % (test code = 770-8) IMM GRAN % (test code 0.20 % = 4432009776) LYMPH % (test code = 25.0 % 736-9) MONO % (test code = 9.0 % 5905-5) EOS % (test code = 0.8 % 713-8) BASO % (test code = 0.6 % 706-2) GRAN MAT x10^3(ANC) 5.61 10*3/uL 1.88-7.09 (test code = 3715910898) IMM GRAN x10^3 (test <0.03 0.00-0.06 code = 2425519035) LYMPH x10^3 (test code 2.18 10*3/uL 1.32-3.29 = 731-0) MONO x10^3 (test code 0.78 10*3/uL 0.33-0.92 = 742-7) EOS x10^3 (test code = 0.07 10*3/uL 0.03-0.39 711-2) BASO x10^3 (test code 0.05 10*3/uL 0.01-0.07 = 704-7) Lab Interpretation Abnormal (test code = 32332-0) [facility]"
[2021-05-04 23:41] LABS: Absolute Lymphocytes (CBC) 2.5 K/uL (0.7-4.9); Hematocrit 40.1 % (36.0-45.0); Lymphocytes % 27.2 % (15.3-44.8); MPV 9.4 fL (7.6-11.3)
[2021-05-05 00:11] LABS: ALT/SGPT 20 U/L (12-78); AST/SGOT 20 U/L (15-37); Albumin 3.9 g/dL (3.4-5.0); Alkaline Phosphatase 70 U/L (45-117); BUN Blood Urea Nitrogen 5 mg/dL (7-18); Bicarbonate 22 mmol/L (21-32); Bilirubin Direct 0.2 mg/dL (0-0.2); Glucose Level 101 mg/dL (74-106); Potassium 3.4 mmol/L (3.5-5.1); Protein, Total 7.8 g/dL (6.4-8.2); Sodium Level 139 mmol/L (136-145)
[2021-05-05 00:21] LABS: Urine Blood Negative (Negative); Urine Glucose Negative (Negative); Urine Protein Negative (Negative); Urine Specific Gravity 1.015 (1.005-1.030)
[2021-05-05 00:53] LABS: Barbiturates NEGATIVE (NEGATIVE); Benzodiazepines NEGATIVE (NEGATIVE); Cocaine NEGATIVE (NEGATIVE); METHAMPHETAM POSITIVE (NEGATIVE); Methadone NEGATIVE (NEGATIVE); Opiates NEGATIVE (NEGATIVE); Phencyclidine NEGATIVE (NEGATIVE); THC Cannibis POSITIVE (NEGATIVE)
[2021-05-05 01:17] LABS: Urine Specific Gravity/Preg 1.015 (1.005-1.030)
[2021-05-05 02:54] LABS: SARS-COV-2 RT PCR NEGATIVE (NEGATIVE)
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
[2021-05-05 12:20] VITALS: O2SAT 98
[2021-05-05 12:22] VITALS: BP 113/80; TEMP 98
--- NOTE | 2021-05-05 14:11 | RAD REPORT ---
EXAM DESCRIPTION: CT - [id number] - 05/05/2021 4:42 am CLINICAL HISTORY: The patient is 31 years old and is Female; hanging;Pain TECHNIQUE: Axial computed tomography images of the head/brain and cervical spine without intravenous contrast. Sagittal and coronal reformatted images were created and reviewed. This CT exam was pe rformed using one or more of the following dose reduction techniques: automated exposure control, a djustment of the mA and/or kV according to patient size, and/or use of iterative reconstruction techn ique. DLP: 1009 mGy*cm COMPARISON: None. FINDINGS: BRAIN: Unremarkable. No hemorrhage. No significant white matter disease. No edema. VENTRICLES: Unremarkable. No ventriculomegaly. SKULL: No acute fracture. SINUSES: Unremarkable as visualized. No acute sinusitis. MASTOID AIR CELLS: Unremarkable as visualized. No mastoid effusion. VERTEBRAE: No cervical spine fracture or subluxation. DISCS/SPINAL CANAL/NEURAL FORAMINA: C5-6 and C6-7 multifactorial degenerative changes. No spinal canal stenosis. SOFT TISSUES: Unremarkable. IMPRESSION: 1. No acute intracranial abnormality. 2. No cervical spine fracture or subluxation. 3. C5-6 and C6-7 multifactorial degenerative changes. Electronically signed by: Anton Urrutia DO 05/05/2021 12:03 AM CHEMICAL PROCESSING SUPERVISOR Due to temporary technical issues with the PACS/Fluency reporting system, reports are being signed by the in house radiologists without review as a courtesy to insure prompt reporting. The interpreting radiologist is fully responsible for the content of the report.
--- NOTE | 2021-05-05 14:12 | RAD REPORT ---
EXAM DESCRIPTION: CT - Soft Tissue Neck W/Contr - 05/05/2021 4:42 am CLINICAL HISTORY: 31 years Female TRAUMA COMPARISON: None. TECHNIQUE: Contiguous axial images obtained through the neck following IV contrast. Reformatted imag es obtained. This exam was performed according to our department optimization program which includes automated exp osure control, adjustment of the mA and/or kv according to patient size and/or use of iterative recon struction technique. FINDINGS: The visualized intracranial structures and post septal orbits appear grossly unremarkable. The parotid glands, submandibular glands and thyroid gland appear unremarkable. The lung apices are clear. The pharynx and larynx appear unremarkable. Scattered lymph nodes in the neck likely reactive. The vascular structures appear grossly intact. No fluid or significant mucosal thickening in the visualized paranasal sinuses. Mild degenerative changes in the lower cervical spine. There is dental disease involving bilateral maxillary and mandibular molar tooth greater on the right . IMPRESSION: No acute traumatic injury is identified. There is dental disease involving bilateral maxillary and mandibular molar tooth greater on the right . Electronically signed by: Ajay Barger MD 05/05/2021 12:10 AM PERFORMANCE IMPROVEMENT SPECIALIST Due to temporary technical issues with the PACS/Fluency reporting system, reports are being signed by the in house radiologists without review as a courtesy to insure prompt reporting. The interpreting radiologist is fully responsible for the content of the report.
== END 2021-05-05 11:58 ==
LOC: ER 22:47
DX: S10.94XA External constriction of unspecified part of neck, initial encounter (principal); F33.1 Major depressive disorder, recurrent, moderate; X83.8XXA Intentional self-harm by other specified means, initial encounter; Z20.822 Contact with and (suspected) exposure to COVID-19
CPT/HCPCS: 85025; 80048; 36415; 80320; 80329 ×2; 81025; 80076; 81003; 0240U; 80307; 70450; 72125; 70491; 99285; Q9967

== ENCOUNTER 2021-12-15 13:13 | Emergency (ER) | payer OTHER ==
--- OUTSIDE RECORDS SUMMARY | 2021-12-15 13:16 | XMS REPORT | Continuity of Care Document ---
:1990 Author Organization [facility] t Address [address] [place] [address] Care Team Providers Name Role Phone Livan Wagner Primary Care Physician HARISH GOMEZ Attending Clinician Unavailable PEDRO SILVA Attending Clinician Unavailable Pedro Silva MD Attending Clinician Salud Pinzon MD Attending Clinician SALUD PINZON Attending Clinician Unavailable Payers Payer Name Policy Type Policy Number Effective Date Expiration Date S ource Problems This patient has no known problems. Allergies, Adverse Reactions, Alerts Allergy Allergy Status Severity Reaction(s) Onset Inactive Treating Comm ents Source Name Type Date Date Clinician NO KNOWN Drug Active Univers ALLERGIE Class ity of S [facility] Social History Social Habit Start Date Stop Date Quantity Comments Source Exposure to Not sure [facility] SARS-CoV-2 (event) Medica l Branch Sex Assigned At [birth year] [facility] 00:00:00 00:00:00 [facility] Smoking Status Start Date Stop Date Source Unknown if ever smoked [facility] Medications Ordered Filled Start Stop Current Ordering Indication Dosage Frequency Signature Comments Components Source Medication Medication Date Date Medication? Clinician (SIG) Name Name No known 2020-03 No Univers medications 04-15 ity of 20:48: [address] NaCl 0.9% No 1000mL at 999 Uni vers (NS) bolus 3-13 03-13 mL/hr, ity of infusion 20:45: 22:16 1,000 mL, Candido as 1,000 mL 00 :00 IV Medical Infusion, Branch ONCE, 1 dose, 05/25/20 at 1445, STAT Vital Signs Vital Name Observation Time Observation Value Comments Source Systolic blood 2021-02-13 02:47:00 124 mm[Hg] Univer sity of pressure [facility] Diastolic blood 2021-02-13 02:47:00 84 mm[Hg] Unive rsity of [facility] Heart rate 2021-02-13 02:47:00 73 /min Universi ty [facility] Body temperature 2021-02-13 02:47:00 [facility].72 [facility] Res[facility] rate 2021-02-13 02:47:00 18 /min Univ ersity [facility] Body height 2021-02-13 02:47:00 160 cm Universi ty [facility] Body weight 2021-02-13 02:47:00 56.7 kg Universi ty [facility] BMI 2021-02-13 02:47:00 22.14 kg/m2 Universi ty [facility] Oxygen saturation in 2021-02-13 02:47:00 100 /min University of Arterial blood by [employer] [facility] Pulse oximetry Branch Systolic blood 2020-05-25 21:00:00 102 mm[Hg] Univer sity of [facility] Diastolic blood 2020-05-25 21:00:00 64 mm[Hg] Unive rsity of [facility] Heart rate 2020-05-25 21:00:00 81 /min Universi ty [facility] Respiratory rate 2020-05-25 21:00:00 14 /[facility] Oxygen saturation in 2020-05-25 21:00:00 100 /min University of Arterial blood by [employer] [facility] Pulse oximetry Branch Body temperature 2020-05-25 19:37:00 36.33 Sara Univ ersity [facility] Body weight 2020-05-25 19:37:00 52.164 kg Universi ty [facility] Procedures Procedure Date / Time Performed Performing Clinician Rodriguez e LIPASE 2021-02-13 03:00:00 Pedro Silva [facility] TROPONIN I 2021-02-13 03:00:00 Pedro Silva [facility] COMP. METABOLIC PANEL 2021-02-13 03:00:00 Pedro Silva [facility] ([id number]) Medical Branch CBC WITH DIFF 2021-02-13 03:00:00 Pedro Silva [facility] NOTICE OF PRIVACY 2021-02-13 02:33:01 Doctor Unassigned, No [facility] PRACTICES Name Medical Branch CONSENT/REFUSAL FOR 2021-02-13 02:32:44 Doctor Unassigned, No [facility] DIAGNOSIS AND Name [facility] TREATMENT POCT TEST 2020-05-25 22:03:00 Salud Pinzon [facility] CREATINE KINASE 2020-05-25 20:10:00 Sascha [facility] LIPASE 2020-05-25 20:10:00 Sascha [facility] MAGNESIUM 2020-05-25 20:10:00 [facility] HEPATIC FUNCTION 2020-05-25 20:10:[id number] [place] (ALB,T.PRO,BILI T,BU/BC,ALT,AST,ALK PHOS) BASIC METABOLIC PANEL 2020-05-25 20:10:00 Salud Pinzon [facility] (NA, K, CL, CO2, Medical Branch GLUCOSE, BUN, CREATININE, CA) CBC WITH DIFF 2020-05-25 20:10:00 [facility] Encounters Start End Encounter Admission Attending Care Care Encounter Source Date/Time Date/Time Type Type Clinicians Facility Department ID 2020-11-26 Outpatient JASON, [facility] [id number] [facility] 19:24:14 WILLYIA 2021-02-12 2021-02-12 Emergency X SHIRA DEMARINA ERT [id number] Univers 20:51:00 23:13:[facility]-12 2021-02-12 [facility] [id number] Univers 20:51:00 23:13:00 Pedro JOHNSON [id number] ity of [facility] [id number] [facility] [id number] [place] [id number] Branch 2020-05-25 2020-05-25 Emergency [facility] [id number] Univers 13:31:00 16:18:00 Salud Johnson [id number] i ty of [place] [id number] [facility] [id number] [address] 2020-05-25 2020-05-25 Emergency X [facility] ERT [id number] Univers 13:31:00 13:31:00 SALUD [facility] Results Test Description Test Time Test Comments Results Result Comments Source TROPONIN I 2021-02-13 03:46:48 Test Item Value Reference Range Interpretation Comme nts TROPONIN I (test code = 0.000 ng/mL See_Comment [Au tomated message] The 9991886902) system which ge nerated this result tra [...] biotin. Lab Interpretation Normal (test code = 90917-8) [facility] ([id number])2021-02-13 03:37:12 Test Item Value Reference Range Interpretation Comments NA (test code = 136 mmol/L 135-145 9864586047) K (test code = 4.2 mmol/L 3.5-5.0 1102223494) CL (test code = 101 mmol/L 98-108 2045727484) CO2 TOTAL (test code 30 mmol/L 23-31 = 8817328801) AGAP (test code = 2-16 3830029490) BUN (test code = 13 mg/dL 7-23 3440547701) GLUCOSE (test code = 100 mg/dL 70-110 7337918616) CREATININE (test code 0.80 mg/dL 0.50-1.04 = 1675553801) TOTAL BILI (test code 0.3 mg/dL 0.1-1.1 = 4225778838) CALCIUM (test code = 9.5 mg/dL 8.6-10.6 3940347842) T PROTEIN (test code 7.1 g/dL 6.3-8.2 = 3701176810) ALBUMIN (test code = 4.3 g/dL 3.5-5.0 2101828127) ALK PHOS (test code = 51 U/L 34-122 9303806806) ALTv (test code = 10 U/L 5-35 2-6) AST(SGOT) (test code 21 U/L 13-40 = 9530659174) eGFR (test code = mL/min/1.73m2 7850753587) KARLA (test code = KARLA) Association of [...] or urine or abnormalities in imaging tests). [facility], [id number] 03:37:11 Test Item Value Reference Range Interpretation Comments LIPASE (test code = 9404678117) 77 U/L 0-220 Lab Interpretation (test code = Normal 96167-8) [facility] WITH [id number] 03:15:25 Test Item Value Reference Range Interpretation Comments WBC (test code = See_Comment [Automated 5490-2) message] The sy stem which generated this result transmitted reference range : 4.30 - 11.10 10*3/?L. The reference range was not used to interpret this result as normal/abnormal . RBC (test code = See_Comment [Automated 199-8) message] The sy stem which generated this [...] (test code = 38.6 fL 39.0-49.9 L 25083-4) RDW-CV (test code = 11.6 % 12.0-15.5 L 788-0) PLT (test code = See_Comment [Automated 417-3) message] The sy stem which generated this result transmitted reference range : 166 - 358 10*3/ ?L. The reference r jagdeep was not used to interpret this result as normal/abnormal . MPV (test code = 11.2 fL 9.5-12.9 13395-5) NRBC/100 WBC (test See_Comment [Automat ed code = 8039347373) message] The system which generated this result transmitted reference range : 0.0 - 10.0 /100 WBCs. The refer ence range was not u sed to interpret th is result as normal/abnormal . NRBC x10^3 (test code <0.01 See_Comment [Auto mated = 1793021448) message] The s ystem which generated this result transmitted reference range : 10*3/?L. The reference range was not used to interpret this result as normal/abnormal . GRAN MAT (NEUT) % 56.6 % (test code = 770-8) IMM GRAN % (test code 0.30 % = 8871075299) LYMPH % (test code = 30.3 % 736-9) MONO % (test code = 10.3 % 5905-5) EOS % (test code = 2.0 % 713-8) BASO % (test code = 0.5 % 706-2) GRAN MAT x10^3(ANC) 4.34 10*3/uL 1.88-7.09 (test code = 8980088758) IMM GRAN x10^3 (test <0.03 0.00-0.06 code = 1984941981) LYMPH x10^3 (test code 2.32 10*3/uL 1.32-3.29 = 731-0) MONO x10^3 (test code 0.79 10*3/uL 0.33-0.92 = 742-7) EOS x10^3 (test code = 0.15 10*3/uL 0.03-0.39 711-2) BASO x10^3 (test code 0.04 10*3/uL 0.01-0.07 = 704-7) Lab Interpretation Abnormal (test code = 29705-8) [facility] [id number] 22:03:00 Test Item Value Reference Range Interpretation Comments POCT PREG (test code = 1605) negative On board controls acceptable with positive C Line (test code = 3574) POCT PREG LOT # (test code = 3575) [id number] POCT PREG TEST DATE (test 01-12-2022 code = 3576) Lab Interpretation (test code = Normal 00492-0) [facility] Function [facility] (ALB, T.PRO, BILI T, BU/BC, ALT, AST, ALK PHOS)2020-05-25 20:35:00 Test Item Value Reference Range Interpretation Comments TOTAL BILI (test code = 0715582032) 0.8 mg/dL 0.1-1.1 BILI UNCON (test code = 3402397618) 0.7 mg/dL 0.1-1.1 BILI CONJ (test code = 7390397492) 0.0 mg/dL 0.0-0.3 T PROTEIN (test code = 8781516872) 7.4 g/dL 6.3-8.2 ALBUMIN (test code = 4479673400) 4.6 g/dL 3.5-5.0 ALK PHOS (test code = 8034129346) 59 U/L 34-122 ALTv (test code = 1742-6) 14 U/L 5-35 AST(SGOT) (test code = 7517612639) 31 U/L 13-40 Lab Interpretation (test code = Normal 03455-0) [facility]2021-03-13 20:35:00 Test Item Value Reference Range Interpretation Comments MAGNESIUM (test code = 2228644642) 1.7 mg/dL 1.7-2.4 Lab Interpretation (test code = Normal 00848-4) [facility] (NA, K, CL, CO2, GLUCOSE, BUN, CREATININE, CA)2020-05-25 20:34:40 Test Item Value Reference Range Interpretation Comments NA (test code = 138 mmol/L 135-145 0629863973) K (test code = 4.1 mmol/L 3.5-5.0 5701816241) CL (test code = 105 mmol/L 98-108 5498757124) CO2 TOTAL (test code = 26 mmol/L 23-31 2630596924) AGAP (test code = 2-16 1856469474) BUN (test code = 13 mg/dL 7-23 6532651677) GLUCOSE (test code = 88 mg/dL 70-110 6834696738) CREATININE (test code 0.68 mg/dL 0.50-1.04 = 5951191450) CALCIUM (test code = 8.7 mg/dL 8.6-10.6 6503723998) eGFR Calculation mL/min/1.73m2 (Non-) (test code = 7853433012) eGFR Calculation mL/min/1.73m2 () (test code = 9618704867) KARLA (test code = KARLA) Association of [...] or urine or abnormalities in imaging tests). [facility]udaLipase [id number] 20:34:40 Test Item Value Reference Range Interpretation Comments LIPASE (test code = 5746100001) 165 U/L 0-220 Lab Interpretation (test code = Normal 04579-0) [facility] [id number] 20:34:40 Test Item Value Reference Range Interpretation Comments CK (test code = 0704745056) 128 U/L 33-194 Lab Interpretation (test code = Normal 51534-5) [facility] with [id number] 20:23:34 Test Item Value Reference Range Interpretation [...] (test code = 38.5 fL 39.0-49.9 L 93902-4) RDW-CV (test code = 11.9 % 12.0-15.5 L 788-0) PLT (test code = See_Comment [Automated 777-3) message] The sy stem which generated this result transmitted reference range : 166 - 358 10*3/ ?L. The reference r jagdeep was not used to interpret this result as normal/abnormal . MPV (test code = 11.2 fL 9.5-12.9 21918-1) NRBC/100 WBC (test See_Comment [Automat ed code = 9227344593) message] The system which generated this result transmitted reference range : 0.0 - 10.0 /100 WBCs. The refer ence range was not u sed to interpret th is result as normal/abnormal . NRBC x10^3 (test code <0.01 See_Comment [Auto mated = 2436622306) message] The s ystem which generated this result transmitted reference range : 10*3/?L. The reference range was not used to interpret this result as normal/abnormal . GRAN MAT (NEUT) % 64.4 % (test code = 770-8) IMM GRAN % (test code 0.20 % = 5381875008) LYMPH % (test code = 25.0 % 736-9) MONO % (test code = 9.0 % 5905-5) EOS % (test code = 0.8 % 713-8) BASO % (test code = 0.6 % 706-2) GRAN MAT x10^3(ANC) 5.61 10*3/uL 1.88-7.09 (test code = 3638786323) IMM GRAN x10^3 (test <0.03 0.00-0.06 code = 5848819546) LYMPH x10^3 (test code 2.18 10*3/uL 1.32-3.29 = 731-0) MONO x10^3 (test code 0.78 10*3/uL 0.33-0.92 = 742-7) EOS x10^3 (test code = 0.07 10*3/uL 0.03-0.39 711-2) BASO x10^3 (test code 0.05 10*3/uL 0.01-0.07 = 704-7) Lab Interpretation Abnormal (test code = 92147-8) [facility]"
[2021-12-15] MEDS ORDERED: ASPIRIN 81 MG CHEWABLE TABLET ONE (13:39)
[2021-12-15] MEDS ORDERED: ACETAMINOPHEN 500 MG TAB ONE (13:39)
[2021-12-15 13:58] LABS: Absolute Lymphocytes (CBC) 1.5 K/uL (0.7-4.9); Hematocrit 34.7 % (36.0-45.0); Lymphocytes % 26.6 % (15.3-44.8); MCV 84.7 fL (80-100); MPV 8.8 fL (7.6-11.3); RBC Red Blood Cell Count 4.09 M/uL (3.86-4.86)
[2021-12-15 14:08] LABS: Potassium 3.6 mmol/L (3.5-5.1); Troponin High Sensitivity 3.6 pg/mL (<58.9)
--- NOTE | 2021-12-15 14:29 | RAD REPORT ---
EXAM DESCRIPTION: RAD - Chest Single View - 12/15/2021 2:11 pm CLINICAL HISTORY: PAIN COMPARISON: None TECHNIQUE: AP portable chest image was obtained 12/15/2021 2:11 pm . FINDINGS: Lungs are clear. Heart and vasculature are normal. No measurable pleural effusion and no p neumothorax. No acute bony abnormality seen. No acute aortic findings suspected. IMPRESSION: No acute cardiopulmonary process.
--- NOTE | 2021-12-15 14:55 | EDPHYS ---
Physician Documentation [facility] Name: Donal Langston Age: 31 yrs Sex: Female : 1990 Arrival Date: 12/15/2021 Time: 13:15 Bed 18 Private MD: ED Physician Xiang Ty HPI: 12/15 13:34 This 31 yrs old Female presents to ER via Ambulatory with complaints of Chest Pain, jr11 Left Sided Numbness. 13:34 The patient or guardian reports chest pain that is located primarily in the substernal jr11 area. The pain does not radiate. Associated signs and symptoms: Pertinent negatives: abdominal pain, headache, lightheadedness, near syncope. The chest pain is described as aching, sharp. Duration: The patient or guardian reports a single episode, >8hrs. Modifying factors: The symptoms are alleviated by the symptoms are aggravated by twisting torso. Severity of pain: At its worst the pain was moderate in the emergency department the pain is actually worse. Pt with atypical chest pain and tingling bilateral UE. Historical: - Allergies: 13:33 No Known Allergies; ap3 - PMHx: 13:33 Bipolar disorder; depressive disorder; ap3 - Immunization history:: Client reports receiving the 1st dose of the Covid vaccine. - Social history:: Smoking status: Reported history of juuling and/or vaping. ROS: 13:34 All other systems are negative. jr11 Exam: 13:34 Constitutional: This is a well developed, well nourished patient who is awake, alert, jr11 and in no acute distress. Head/Face: Normocephalic, atraumatic. Eyes: Extra-ocular motions intact. Lids and lashes normal. Conjunctiva and sclera are non-icteric and not injected. Cornea within normal limits. Periorbital areas with no swelling, redness, or edema. ENT: Nares patent. No nasal discharge, no septal abnormalities noted. Oropharynx with no redness, swelling, or masses, exudates, or evidence of obstruction, uvula midline. Mucous membranes moist. Neck: Trachea midline, no thyromegaly or masses palpated, and no cervical lymphadenopathy. Supple, full range of motion without nuchal rigidity, or vertebral point tenderness. No Meningismus. Chest/axilla: Normal chest wall appearance and motion. Nontender with no deformity. No lesions are appreciated. Cardiovascular: Regular rate and rhythm with a normal S1 and S2. No gallops, murmurs, or rubs. Normal PMI, no JVD. No pulse deficits. Respiratory: Lungs have equal breath sounds bilaterally, clear to auscultation and percussion. No rales, rhonchi or wheezes noted. No increased work of breathing, no retractions or nasal flaring. Abdomen/GI: Soft, non-tender, with normal bowel sounds. No distension or tympany. No guarding or rebound. No evidence of tenderness throughout. Back: No spinal tenderness. No costovertebral tenderness. Full range of motion. Skin: Warm, dry with normal turgor. Normal color with no rashes, no lesions, and no evidence of cellulitis. MS/ Extremity: Pulses equal, no cyanosis. Neurovascular intact. Full, normal range of motion. Neuro: Awake and alert, GCS 15, oriented to person, place, time, and situation. No gross motor or sensory deficits. Vital Signs: 13:31 BP 125 / 71; Pulse 80; Resp 17; Pulse Ox 100% ; Weight 61.23 kg; Height 5 ft. 3 in. ap3 (160.02 cm); 14:14 BP 118 / 82; Pulse 66; Resp 16; Pulse Ox 99% ; Pain 4/10; mb8 14:47 BP 115 / 64; Pulse 70; Resp 18; Pulse Ox 99% ; mb8 13:31 Body Mass Index 23.91 (61.23 kg, 160.02 cm) ap3 MDM: 13:33 Patient medically screened. [facility] 13:34 Differential diagnosis: chest wall pain, gastroesophageal reflux disease (GERD), jr11 anxiety. Data reviewed: vital signs, nurses notes. 13:51 ED course: EKG interpreted by me shows normal sinus rhythm, right axis deviation, jr11 normal intervals, no acute ST changes.. 14:55 ED course: benign workup to f/u PCP, HEART <3. ED course: PERC negative no concern PE. 11 12/15 13:34 Order name: Basic Metabolic Panel 11 12/15 13:34 Order name: CBC with Diff 11 12/15 13:34 Order name: D-Dimer 11 12/15 13:34 Order name: NT PRO-BNP 11 12/15 13:34 Order name: Troponin HS 11 12/15 13:59 Order name: CBC with Automated Diff; Complete Time: 14:54 EDMS 12/15 13:34 Order name: XRAY Chest (1 view) [facility] 12/15 14:04 Order name: D-Dimer; Complete Time: 14:54 EDMS 12/15 14:08 Order name: Basic Metabolic Panel; Complete Time: 14:54 EDMS 12/15 14:08 Order name: Troponin High Sensitivity; Complete Time: 14:54 EDMS 12/15 14:08 Order name: NT PRO-BNP; Complete Time: 14:54 EDMS 12/15 14:32 Order name: RAD; Complete Time: 14:54 EDMS 12/15 13:34 Order name: EKG; Complete Time: 13:35 [facility] 12/15 13:34 Order name: Cardiac monitoring; Complete Time: 13:35 [facility] 12/15 13:34 Order name: EKG - Nurse/Tech; Complete Time: 13:46 [facility] 12/15 13:34 Order name: IV Saline Lock; Complete Time: 13:46 [facility] 12/15 13:34 Order name: Labs collected and sent; Complete Time: 13:46 [facility] 12/15 13:34 Order name: O2 Per Protocol; Complete Time: 13:35 [facility] 12/15 13:34 Order name: O2 Sat Monitoring; Complete Time: 13:35 [facility] Administered Medications: 13:45 Drug: Aspirin Chewable Tablet 324 mg Route: PO; mb8 13:45 Drug: Tylenol 1000 mg Route: PO; mb8 Disposition Summary: 12/15/21 14:55 Discharge Ordered Location: Home jr Condition: Stable jr11 Diagnosis - Chest pain, unspecified jr11 - Paresthesia of skin jr11 Discharge Instructions: - Discharge Summary Sheet jr11 - Nonspecific Chest Pain, Adult jr11 - Paresthesia jr11 Forms: - Medication Reconciliation Form jr11 - Thank You Letter jr11 - Antibiotic Education jr11 - Prescription Opioid Use jr11 Signatures: Dispatcher [employer] EDCarlotta Pitts RN RN ap3 Xiang Ty MD MD jr11 Fili Felix RN RN mb8
--- NOTE | 2021-12-15 14:55 | ER ---
Nurse's Notes [facility] Name: Donal Langston Age: 31 yrs Sex: Female : 1990 Arrival Date: 12/15/2021 Time: 13:15 Bed 18 Private MD: Diagnosis: Chest pain, unspecified;Paresthesia of skin Presentation: 12/15 13:31 Chief complaint: Patient states: she was working on her car yesterday when she started ap3 having a burning, tingling feeling that started in her hands, then moved in to her arms, and then into her chest. patient describes the feeling as a "flashing burning feeling". Coronavirus screen: At this time, the client does not indicate any symptoms associated with coronavirus-19. Ebola Screen: No symptoms or risks identified at this time. Initial Sepsis Screen: Does the patient meet any 2 criteria? No. Patient's initial sepsis screen is negative. Does the patient have a suspected source of infection? No. Patient's initial sepsis screen is negative. Risk Assessment: Do you want to hurt yourself or someone else? Patient reports no desire to harm self or others. Onset of symptoms was December 14, 2021. 13:31 Method Of Arrival: Ambulatory ap3 13:31 Acuity: DELIA 3 ap3 Triage Assessment: 13:33 General: Appears in no apparent distress. Behavior is calm, cooperative. Pain: ap3 Complains of pain in chest, right hand, left hand, right arm and left arm. Neuro: Level of Consciousness is awake, alert, obeys commands, Oriented to person, place, time, situation. Cardiovascular: Reports chest pain. Respiratory: Airway is patent Respiratory effort is even, unlabored, Respiratory pattern is regular, symmetrical. Historical: - Allergies: 13:33 No Known Allergies; ap3 - PMHx: 13:33 Bipolar disorder; depressive disorder; ap3 - Immunization history:: Client reports receiving the 1st dose of the Covid vaccine. - Social history:: Smoking status: Reported history of juuling and/or vaping. Screenin:34 Abuse screen: Denies threats or abuse. Nutritional screening: No deficits noted. ap3 Tuberculosis screening: No symptoms or risk factors identified. Fall Risk None identified. Assessment: 13:34 Pain: Pain began gradually, 1 day ago. ap3 13:37 Pain: Complains of pain in chest Pain does not radiate. Neuro: Level of Consciousness mb8 is awake, alert, obeys commands, Oriented to person, place, time, situation, Appropriate for age [employer]aste[employer] Winder are equal bilaterally Moves all extremities. Full function Gait is steady, Speech is normal, Facial symmetry appears normal, Pupils are PERRLA, Pupil Size: 3 Tingling in right arm and left arm. Cardiovascular: Rhythm is sinus rhythm. 14:15 Reassessment: Patient and/or family updated on plan of care and expected duration. Pain mb8 level reassessed. Patient is alert, oriented x 3, equal unlabored respirations, skin warm/dry/pink. 14:48 Reassessment: Patient and/or family updated on plan of care and expected duration. Pain mb8 level reassessed. Patient is alert, oriented x 3, equal unlabored respirations, skin warm/dry/pink. Vital Signs: 13:31 BP 125 / 71; Pulse 80; Resp 17; Pulse Ox 100% ; Weight 61.23 kg; Height 5 ft. 3 in. ap3 (160.02 cm); 14:14 BP 118 / 82; Pulse 66; Resp 16; Pulse Ox 99% ; Pain 4/10; mb8 14:47 BP 115 / 64; Pulse 70; Resp 18; Pulse Ox 99% ; mb8 13:31 Body Mass Index 23.91 (61.23 kg, 160.02 cm) ap3 ED Course: 13:15 Patient arrived in ED. rg4 13:17 Xiang Ty MD is Attending Physician. jr11 13:25 Fili Felix, JADON is Primary Nurse. mb8 13:33 Triage completed. ap3 13:34 Arm band placed on right wrist. ap3 13:34 Patient has correct armband on for positive identification. Placed in gown. Bed in low ap3 position. Call light in reach. environmental monitoring technician on. Pulse ox on. NIBP on. Door closed. Noise minimized. Warm blanket given. 13:34 Patient maintains SpO2 saturation greater than 95% on room air. ap3 13:37 No provider procedures requiring assistance completed. Inserted saline lock: 18 gauge mb8 in right antecubital area, using aseptic technique. Blood collected. 13:45 Basic Metabolic Panel Sent. mb8 13:45 CBC with Diff Sent. mb8 13:45 D-Dimer Sent. mb8 13:46 NT PRO-BNP Sent. mb8 13:46 Troponin HS Sent. mb8 13:51 EKG done, by ED staff, reviewed by Xiang Ty MD. [facility] 15:31 IV discontinued, intact, bleeding controlled, No redness/swelling at site. Pressure mb8 dressing applied. Administered Medications: 13:45 Drug: Aspirin Chewable Tablet 324 mg Route: PO; mb8 13:45 Drug: Tylenol 1000 mg Route: PO; mb8 Medication: 13:34 VIS not applicable for this client. 3 Outcome: 14:55 Discharge ordered by . [facility] 15:31 Discharged to home ambulatory. mb8 15:31 Condition: good 15:31 Discharge instructions given to patient, Instructed on discharge instructions, follow up and referral plans. Demonstrated understanding of instructions, follow-up care. 15:31 Patient left the ED. mb8 Signatures: Merissa Ortiz 4 Melina Quintero 3 Carlotta Higgins RN RN 3 Xiang Ty MD MD [facility] Fili Felix RN RN mb8
[2021-12-15 16:00] VITALS: O2SAT 99
[2021-12-15 16:02] VITALS: BP 115/64
== END 2021-12-15 15:31 | disposition home or self-care (01) ==
LOC: ER 13:13
DX: R07.9 Chest pain, unspecified (principal); R20.2 Paresthesia of skin; F31.9 Bipolar disorder, unspecified; F17.290 Nicotine dependence, other tobacco product, uncomplicated
CPT/HCPCS: 36415; 71045; 80048; 83880; 84484; 85025; 85379; 99285

== ENCOUNTER 2022-08-03 16:35 | Emergency (ER) | payer OTHER, SELFPAY ==
--- OUTSIDE RECORDS SUMMARY | 2022-08-03 16:39 | XMS REPORT | Continuity of Care Document ---
:1990 Author Organization [facility] t Address [address] [place] [address] [address] [place] [address] Care Team Providers Name Role Phone Livan [...] Active Univers ALLERGIE Class ity of S [facility] Social History Social Habit Start Date Stop Date Quantity Comments Source Exposure to Not sure [facility] SARS-CoV-2 (event) Medica l Branch Sex Assigned At [birth year] [facility] 00:00:00 00:00:[address] [facility] Smoking Status Start Date Stop Date Source Unknown if ever smoked [facility] Medications Ordered Filled Start Stop Current Ordering Indication Dosage Frequency Signature Comments Components Source Medication Medication Date Date Medication? Clinician (SIG) Name Name No known 2020-03 No Univers medications 04-15 ity of 20:48: [address] NaCl 0.9% No 1000mL at 999 Uni vers (NS) bolus 3-13 03-13 mL/hr, ity of infusion 20:45: 22:16 1,000 mL, Candido as 1,000 mL 00 :00 IV Medical Infusion, Branch ONCE, 1 dose, 05/25/20 at 1445, STAT Vital Signs Vital Name Observation Time Observation Value Comments Source Systolic blood 2021-02-13 02:47:00 124 mm[Hg] Univer sity of pressure [facility] Diastolic blood 2021-02-13 02:47:00 84 mm[Hg] Unive rsity of [facility] Heart rate 2021-02-13 02:47:00 73 /min Universi ty [facility] Body temperature 2021-02-13 02:47:00 [facility].72 [facility] Res[facility] rate 2021-02-13 02:47:00 18 /min Univ ersity [facility] Body height 2021-02-13 02:47:00 160 cm Universi ty [facility] Body weight 2021-02-13 02:47:00 56.7 kg Universi ty [facility] BMI 2021-02-13 02:47:00 22.14 kg/m2 Universi ty [facility] Oxygen saturation in 2021-02-13 02:47:00 100 /min University of Arterial blood by [place] [facility] Pulse oximetry Branch Systolic blood 2020-05-25 21:00:00 102 mm[Hg] Univer sity of [facility] Diastolic blood 2020-05-25 21:00:00 64 mm[Hg] Unive rsity of [facility] Heart rate 2020-05-25 21:00:00 81 /min Universi ty [facility] Respiratory rate 2020-05-25 21:00:00 14 /min [facility] Oxygen saturation in 2020-05-25 21:00:00 100 /min University of Arterial blood by [place] [facility] Pulse oximetry Branch Body temperature 2020-05-25 19:37:00 36.33 Sara Univ ersity [facility] Body weight 2020-05-25 19:37:00 52.164 kg Universi ty [facility] Procedures Procedure Date / Time Performed Performing Clinician Rodriguez e LIPASE 2021-02-13 03:00:00 Pedro Silva [facility] TROPONIN I 2021-02-13 03:00:00 Pedro Silva [facility] COMP. METABOLIC PANEL 2021-02-13 03:00:00 Pedro [facility] ([id number] Medical Branch CBC WITH DIFF 2021-02-13 03:00:00 Pedro Silva [facility] NOTICE OF PRIVACY 2021-02-13 02:33:01 Doctor Unassigned, No [facility] PRACTICES Name Medical Branch CONSENT/REFUSAL FOR 2021-02-13 02:32:44 Doctor Unassigned, No [facility] DIAGNOSIS AND Name [facility] TREATMENT POCT TEST 2020-05-25 22:03:00 Salud [facility] CREATINE KINASE 2020-05-25 20:10:00 Sascha [facility] LIPASE 2020-05-25 20:10:00 Sascha [facility] MAGNESIUM 2020-05-25 20:10:00 [facility] HEPATIC FUNCTION 2020-05-25 20:10:00 [id number] Medical [place] (ALB,T.PRO,BILI T,BU/BC,ALT,AST,ALK PHOS) BASIC METABOLIC PANEL 2020-05-25 20:10:00 Salud Pinzon [facility] (NA, K, CL, CO2, Medical Branch GLUCOSE, BUN, CREATININE, CA) CBC WITH DIFF 2020-05-25 20:10:00 [facility] Encounters Start End Encounter Admission Attending Care Care Encounter Source Date/Time Date/Time Type Type Clinicians Facility Department ID 2020-11-26 Outpatient JASON[facility] [id number] [facility] 19:24:14 WILLYIA 2021-02-12 2021-02-12 Emergency X SHIRA NEMARINA ERT [id number] Univers 20:51:00 23:13:00 [facility] 2021-02-12 2021-02-12 [facility] [id number] Univers 20:51:00 23:13:00 Pedro JOHNSON [id number] ity [facility] [id number] [facility] [id number] [place] [id number] Branch 2020-05-25 2020-05-[address] [facility] [id number] Univers 13:31:00 16:18:00 Salud Johnson [id number] i ty of [place] [id number] [facility] [id number] [address] 2020-05-25 2020-05-25 Emergency X [facility] ERT [id number] Univers 13:31:00 13:31:00 SALUD [facility] Results Test Description Test Time Test Comments Results Result Comments Source TROPONIN I 2021-02-13 03:46:48 Test Item Value Reference Range Interpretation Comme nts TROPONIN I (test code = 0.000 ng/mL See_Comment [Au tomated message] The [id number]) system which ge nerated this result tra [...] biotin. Lab Interpretation Normal (test code = 01295-0) [facility] ([id number])2021-02-13 03:37:12 Test Item Value Reference Range Interpretation Comments NA (test code = 136 mmol/L 135-145 6737614458) K (test code = 4.2 mmol/L 3.5-5.0 6619062309) CL (test code = 101 mmol/L 98-108 1258826641) CO2 TOTAL (test code 30 mmol/L 23-31 = 9347696173) AGAP (test code = 2-16 1317626302) BUN (test code = 13 mg/dL 7-23 5068359818) GLUCOSE (test code = 100 mg/dL 70-110 6278552334) CREATININE (test code 0.80 mg/dL 0.50-1.04 = 2517799222) TOTAL BILI (test code 0.3 mg/dL 0.1-1.1 = 4634227512) CALCIUM (test code = 9.5 mg/dL 8.6-10.6 3746784989) T PROTEIN (test code 7.1 g/dL 6.3-8.2 = 9650883976) ALBUMIN (test code = 4.3 g/dL 3.5-5.0 4237571908) ALK PHOS (test code = 51 U/L 34-122 0787846693) ALTv (test code = 10 U/L 5-35 2-6) AST(SGOT) (test code 21 U/L 13-40 = 3451638828) eGFR (test code = mL/min/1.73m2 6758392308) KARLA (test code = KARLA) Association of [...] or urine or abnormalities in imaging tests). [facility] [id number] 03:37:11 Test Item Value Reference Range Interpretation Comments LIPASE (test code = 0629942086) 77 U/L 0-220 Lab Interpretation (test code = Normal 37400-1) [facility] [id number] 03:15:25 Test Item Value Reference Range Interpretation Comments WBC (test code = See_Comment [Automated 7990-2) message] The sy stem which generated this result transmitted reference range : 4.30 - 11.10 10*3/?L. The reference range was not used to interpret this result as normal/abnormal . RBC (test code = See_Comment [Automated 739-8) message] The sy stem which generated this [...] (test code = 38.6 fL 39.0-49.9 L 38886-4) RDW-CV (test code = 11.6 % 12.0-15.5 L 788-0) PLT (test code = See_Comment [Automated 167-3) message] The sy stem which generated this result transmitted reference range : 166 - 358 10*3/ ?L. The reference r jagdeep was not used to interpret this result as normal/abnormal . MPV (test code = 11.2 fL 9.5-12.9 54960-1) NRBC/100 WBC (test See_Comment [Automat ed code = 7920236264) message] The system which generated this result transmitted reference range : 0.0 - 10.0 /100 WBCs. The refer ence range was not u sed to interpret th is result as normal/abnormal . NRBC x10^3 (test code <0.01 See_Comment [Auto mated = 5635892233) message] The s ystem which generated this result transmitted reference range : 10*3/?L. The reference range was not used to interpret this result as normal/abnormal . GRAN MAT (NEUT) % 56.6 % (test code = 770-8) IMM GRAN % (test code 0.30 % = 7569912956) LYMPH % (test code = 30.3 % 736-9) MONO % (test code = 10.3 % 5905-5) EOS % (test code = 2.0 % 713-8) BASO % (test code = 0.5 % 706-2) GRAN MAT x10^3(ANC) 4.34 10*3/uL 1.88-7.09 (test code = 0574692497) IMM GRAN x10^3 (test <0.03 0.00-0.06 code = 1436255796) LYMPH x10^3 (test code 2.32 10*3/uL 1.32-3.29 = 731-0) MONO x10^3 (test code 0.79 10*3/uL 0.33-0.92 = 742-7) EOS x10^3 (test code = 0.15 10*3/uL 0.03-0.39 711-2) BASO x10^3 (test code 0.04 10*3/uL 0.01-0.07 = 704-7) Lab Interpretation Abnormal (test code = 11291-0) [facility] [id number] 22:03:00 Test Item Value Reference Range Interpretation Comments POCT PREG (test code = 1605) negative On board controls acceptable with positive C Line (test code = 3574) POCT PREG LOT # (test code = 3575) [id number] POCT PREG TEST DATE (test 01-12-2022 code = 3576) Lab Interpretation (test code = Normal 47922-4) [facility] (ALB, T.PRO, BILI T, BU/BC, ALT, AST, ALK PHOS)2020-05-25 20:35:00 Test Item Value Reference Range Interpretation Comments TOTAL BILI (test code = 7000282705) 0.8 mg/dL 0.1-1.1 BILI UNCON (test code = 9874801586) 0.7 mg/dL 0.1-1.1 BILI CONJ (test code = 1114500371) 0.0 mg/dL 0.0-0.3 T PROTEIN (test code = 2138780030) 7.4 g/dL 6.3-8.2 ALBUMIN (test code = 2741189408) 4.6 g/dL 3.5-5.0 ALK PHOS (test code = 4924121794) 59 U/L 34-122 ALTv (test code = 1742-6) 14 U/L 5-35 AST(SGOT) (test code = 6339624758) 31 U/L 13-40 Lab Interpretation (test code = Normal 92901-2) [facility]2021-[facility]-13 20:35:00 Test Item Value Reference Range Interpretation Comments MAGNESIUM (test code = 3110822204) 1.7 mg/dL 1.7-2.4 Lab Interpretation (test code = Normal 35384-1) [facility] (NA, K, CL, CO2, GLUCOSE, BUN, CREATININE, CA)2020-05-25 20:34:40 Test Item Value Reference Range Interpretation Comments NA (test code = 138 mmol/L 135-145 6251525829) K (test code = 4.1 mmol/L 3.5-5.0 1054769796) CL (test code = 105 mmol/L 98-108 4661842280) CO2 TOTAL (test code = 26 mmol/L 23-31 5602857239) AGAP (test code = 2-16 9763412704) BUN (test code = 13 mg/dL 7-23 9119124296) GLUCOSE (test code = 88 mg/dL 70-110 4630717026) CREATININE (test code 0.68 mg/dL 0.50-1.04 = 7249581787) CALCIUM (test code = 8.7 mg/dL 8.6-10.6 9681959919) eGFR Calculation mL/min/1.73m2 (Non-) (test code = 5859444323) eGFR Calculation mL/min/1.73m2 () (test code = 8203547589) KARLA (test code = KARLA) Association of [...] or urine or abnormalities in imaging tests). [facility] [id number] 20:34:40 Test Item Value Reference Range Interpretation Comments LIPASE (test code = 7156704728) 165 U/L 0-220 Lab Interpretation (test code = Normal 73224-8) [facility] [id number] 20:34:40 Test Item Value Reference Range Interpretation Comments CK (test code = 1200517277) 128 U/L 33-194 Lab Interpretation (test code = Normal 28364-6) [facility] with [id number] 20:23:34 Test Item Value Reference Range Interpretation [...] (test code = 38.5 fL 39.0-49.9 L 37478-3) RDW-CV (test code = 11.9 % 12.0-15.5 L 788-0) PLT (test code = See_Comment [Automated 777-3) message] The sy stem which generated this result transmitted reference range : 166 - 358 10*3/ ?L. The reference r jagdeep was not used to interpret this result as normal/abnormal . MPV (test code = 11.2 fL 9.5-12.9 67325-3) NRBC/100 WBC (test See_Comment [Automat ed code = 1732926415) message] The system which generated this result transmitted reference range : 0.0 - 10.0 /100 WBCs. The refer ence range was not u sed to interpret th is result as normal/abnormal . NRBC x10^3 (test code <0.01 See_Comment [Auto mated = 5739905583) message] The s ystem which generated this result transmitted reference range : 10*3/?L. The reference range was not used to interpret this result as normal/abnormal . GRAN MAT (NEUT) % 64.4 % (test code = 770-8) IMM GRAN % (test code 0.20 % = 3216464323) LYMPH % (test code = 25.0 % 736-9) MONO % (test code = 9.0 % 5905-5) EOS % (test code = 0.8 % 713-8) BASO % (test code = 0.6 % 706-2) GRAN MAT x10^3(ANC) 5.61 10*3/uL 1.88-7.09 (test code = 3451344506) IMM GRAN x10^3 (test <0.03 0.00-0.06 code = 3965067090) LYMPH x10^3 (test code 2.18 10*3/uL 1.32-3.29 = 731-0) MONO x10^3 (test code 0.78 10*3/uL 0.33-0.92 = 742-7) EOS x10^3 (test code = 0.07 10*3/uL 0.03-0.39 711-2) BASO x10^3 (test code 0.05 10*3/uL 0.01-0.07 = 704-7) Lab Interpretation Abnormal (test code = 40801-4) [facility]"
--- NOTE | 2022-08-03 17:23 | RAD REPORT ---
EXAM DESCRIPTION: RAD - Thoracic Spine Ap/Lat - 08/03/2022 5:12 pm CLINICAL HISTORY: SMASH INJURY Radiculopathy COMPARISON: No comparisons FINDINGS: The thoracic spine vertebral body heights and disc spaces are largely maintained. No acute compression fracture. No significant malalignment. IMPRESSION: Negative study.
--- NOTE | 2022-08-03 17:26 | RAD REPORT ---
EXAM DESCRIPTION: CT - CTHCSPWOC - 08/03/2022 5:15 pm CLINICAL HISTORY: Trauma, head and neck injury. TRAUMA COMPARISON: Soft Tissue Neck W/Contr dated 05/04/2021; Head C Spine Mpr Wo Con dated 05/04/2021 TECHNIQUE: Axial 5 mm thick images of the head were obtained. Axial 2 mm thick images of the cervical spine were obtained with sagittal and coronal reconstruction images generated and reviewed. All CT scans are performed using dose optimization technique as appropriate and may include automated exposure control or mA/KV adjustment according to patient size. FINDINGS: CT HEAD WITHOUT CONTRAST: No acute hemorrhage, hydrocephalus or extra-axial collection is identified.No areas of brain edema or midline shift. The paranasal sinuses and mastoids are clear.The calvarium is intact. CT CERVICAL SPINE WITHOUT CONTRAST: No fracture or subluxation.Moderate lower cervical degenerative spondylosis.No prevertebral soft tiss ues swelling is identified. IMPRESSION: No acute intracranial or cervical spine findings.
--- NOTE | 2022-08-03 17:56 | EDPHYS ---
Physician Documentation [facility] Name: Donal Langston Age: 32 yrs Sex: Female : 1990 Arrival Date: 08/03/2022 Time: 16:35 Bed 3 Private MD: ED Physician Mee Nicholson HPI: 08/03 17:00 This 32 yrs old Female presents to ER via EMS with complaints of head injury. sp3 17:00 32-year-old female with a history of bipolar depression presents to the ED with chief sp3 complaint anterior head injury secondary to slip and fall and possible syncope. Patient states that anytime she gets "upset" she tends to grit her teeth and often times passed out or almost passed out and fall. Simply happened at work today due to emotional disturbance that she had. She was found by coworkers after she had slipped and fell and had regained full awareness immediately subsequently EMS was activated and they transported her here. In route she has been alert and oriented in no acute distress with no reported significant pain or injury. She states she has a mild headache and mild pain under middle of her back. She is also not taken all of her psychiatric medications this week and reports that she will start taking them again. She has had multiple episodes of this in the past and states that she does not want "a lot done".. Historical: - Allergies: 16:46 No Known Allergies; jl7 - Home Meds: 16:46 Atarax Oral [Active]; Seroquel Oral [Active]; jl7 - PMHx: 16:46 Bipolar disorder; depressive disorder; jl7 - PSHx: 16:46 None; jl7 - Immunization history:: Adult Immunizations unknown. - Social history:: Smoking status: Patient reports the use of cigarette tobacco products, smokes one-half pack cigarettes per day, Reported history of juuling and/or vaping. ROS: 17:05 Constitutional: Negative for fever, chills, and weight loss, Eyes: Negative for injury, sp3 pain, redness, and discharge, ENT: Negative for injury, pain, and discharge, Neck: Negative for injury, pain, and swelling, Cardiovascular: Negative for chest pain, palpitations, and edema, Respiratory: Negative for shortness of breath, cough, wheezing, and pleuritic chest pain, Abdomen/GI: Negative for abdominal pain, nausea, vomiting, diarrhea, and constipation, Back: Negative for injury and pain, MS/Extremity: Negative for injury and deformity, Skin: Negative for injury, rash, and discoloration, Neuro: Negative for headache, weakness, numbness, tingling, and seizure, Psych: Negative for depression, anxiety, suicide ideation, homicidal ideation, and hallucinations, Allergy/Immunology: Negative for hives, rash, and allergies, Endocrine: Negative for neck swelling, polydipsia, polyuria, polyphagia, and marked weight changes. 17:05 All other systems are negative. Exam: 17:05 Constitutional: This is a well developed, well nourished patient who is awake, alert, sp3 and in no acute distress. Head/Face: Normocephalic, atraumatic. Eyes: Pupils equal round and reactive to light, extra-ocular motions intact. Lids and lashes normal. Conjunctiva and sclera are non-icteric and not injected. Cornea within normal limits. Periorbital areas with no swelling, redness, or edema. ENT: Nares patent. No nasal discharge, no septal abnormalities noted. External auditory canals are clear. Oropharynx with no redness, swelling, or masses, exudates, or evidence of obstruction, uvula midline. Mucous membranes moist. Neck: Trachea midline, no thyromegaly or masses palpated, and no cervical lymphadenopathy. Supple, full range of motion without nuchal rigidity, or vertebral point tenderness. No Meningismus. Chest/axilla: Normal chest wall appearance and motion. Nontender with no deformity. No lesions are appreciated. Cardiovascular: Regular rate and rhythm with a normal S1 and S2. No gallops, murmurs, or rubs. Normal PMI, no JVD. No pulse deficits. Respiratory: Lungs have equal breath sounds bilaterally, clear to auscultation and percussion. No rales, rhonchi or wheezes noted. No increased work of breathing, no retractions or nasal flaring. Abdomen/GI: Soft, non-tender, with normal bowel sounds. No distension or tympany. No guarding or rebound. No evidence of tenderness throughout. Back: No spinal tenderness. No costovertebral tenderness. Full range of motion. Skin: Warm, dry with normal turgor. Normal color with no rashes, no lesions, and no evidence of cellulitis. MS/ Extremity: Pulses equal, no cyanosis. Neurovascular intact. Full, normal range of motion. Neuro: Awake and alert, GCS 15, oriented to person, place, time, and situation. Cranial nerves II-XII grossly intact. Motor strength 5/5 in all extremities. Sensory grossly intact. Cerebellar exam normal. Normal gait. Psych: Awake, alert, with orientation to person, place and time. Behavior, mood, and affect are within normal limits. Vital Signs: 16:43 BP 129 / 86; Pulse 67; Resp 17; Temp 97.9; Pulse Ox 100% ; Weight 68.04 kg; Height 5 jl7 ft. 3 in. ; Pain 4/10; 16:43 Body Mass Index 26.57 (68.04 kg, 160.02 cm) [facility] 16:43 Pain Scale: Adult jl7 MDM: 16:43 Patient medically screened. sp3 17:06 Data reviewed: vital signs, nurses notes, EMS record, radiologic studies. ED course: sp3 32-year-old with head injury secondary to fall. Possible near syncope or syncope episode is possible. I reviewed EKG from EMS which shows no significant abnormality. Blood glucose was normal. Will obtain CT scan of the head and C-spine and x-ray of the mid thoracic back. I have a very low suspicion for any critical or serious injury. Labs not indicated at this time. Patient is alert and oriented and has a fully normal neurological exam. If work-up is negative we will safely discharge patient home to PCP follow-up and counseling the patient to continue taking all of her psychiatric medications.. 17:54 ED course: Imaging is negative. Patient neurological exam and vital signs remain sp3 normal. We will safely discharge her home at this time.. 05 16:44 Order name: CT Head C Spine; Complete Time: 17:54 sp3 08/03 16:44 Order name: Spine Thoracic Ap/Lat XRAY; Complete Time: 17:54 sp3 Administered Medications: No medications were administered Disposition Summary: 08/03/22 17:56 Discharge Ordered Location: Home sp3 Condition: Stable sp3 Diagnosis - Closed head injury, Near syncope, emotional distress sp3 Followup: sp3 - With: Private Physician - When: Upon discharge from the Emergency Department - Reason: Continuance of care Discharge Instructions: - Discharge Summary Sheet sp3 - Head Injury, Adult sp3 Forms: - Medication Reconciliation Form sp3 - Thank You Letter sp3 - Antibiotic Education sp3 - Prescription Opioid Use sp3 Signatures: Dispatcher [employer] Cammie Edmond RN RN jl7 Mee Nicholson MD MD sp3
--- NOTE | 2022-08-03 17:56 | ER ---
Nurse's Notes [facility] Name: Donal Langston Age: 32 yrs Sex: Female : 1990 Arrival Date: 08/03/2022 Time: 16:35 Bed 3 Private MD: Diagnosis: Closed head injury, Near syncope, emotional distress Presentation: 08/03 16:43 Chief complaint: EMS states: Toned out for syncopal episode, pt reports getting mad jl7 just prior to event. Coronavirus screen: At this time, the client does not indicate any symptoms associated with coronavirus-19. Ebola Screen: No symptoms or risks identified at this time. Initial Sepsis Screen: Does the patient meet any 2 criteria? No. Patient's initial sepsis screen is negative. Does the patient have a suspected source of infection? No. Patient's initial sepsis screen is negative. Risk Assessment: Do you want to hurt yourself or someone else? Patient reports no desire to harm self or others. Onset of symptoms was August 03, 2022. Care prior to arrival: Cervical collar in place. Placed on backboard. IV initiated. 18 GA, in the left antecubital area. 16:43 Method Of Arrival: EMS: [facility] jl7 16:43 Acuity: DELIA 3 jl7 Triage Assessment: 16:46 General: Appears in no apparent distress. uncomfortable, Behavior is calm, cooperative, jl7 appropriate for age. Pain: Pain: Complains of pain in low back area Pain currently is 4 out of 10 on a pain scale. Neuro: Level of Consciousness is awake, alert, obeys commands, Oriented to person, place, time, situation. Cardiovascular: Patient's skin is warm and dry. Respiratory: Airway is patent Respiratory effort is even, unlabored, Respiratory pattern is regular, symmetrical. Derm: Skin is pink, warm \T\ dry. Historical: - Allergies: 16:46 No Known Allergies; jl7 - Home Meds: 16:46 Atarax Oral [Active]; Seroquel Oral [Active]; jl7 - PMHx: 16:46 Bipolar disorder; depressive disorder; jl7 - PSHx: 16:46 None; jl7 - Immunization history:: Adult Immunizations unknown. - Social history:: Smoking status: Patient reports the use of cigarette tobacco products, smokes one-half pack cigarettes per day, Reported history of juuling and/or vaping. Screenin:15 [facility] ED Fall Risk Assessment (Adult) History of falling in the last 3 months, mb9 including since admission Yes- single mechanical fall (1 pt) Confusion or Disorientation No (0 pts) Intoxicated or Sedated No (0 pts) Impaired Gait No (0 pts) Mobility Assist Device Used No (0 pt) Altered Elimination No (0 pt) Score/Fall Risk Level 0 - 2 = Low Risk Oriented to surroundings, Maintained a safe environment, Educated pt \T\ family on fall prevention, incl call for assistance when getting out of bed. Abuse screen: Denies threats or abuse. Nutritional screening: No deficits noted. Tuberculosis screening: No symptoms or risk factors identified. Assessment: 18:15 Reassessment: No changes from previously documented assessment. Patient and/or family mb9 updated on plan of care and expected duration. Pain level reassessed. Patient is alert, oriented x 3, equal unlabored respirations, skin warm/dry/pink. Vital Signs: 16:43 BP 129 / 86; Pulse 67; Resp 17; Temp 97.9; Pulse Ox 100% ; Weight 68.04 kg; Height 5 jl7 ft. 3 in. ; Pain 4/10; 16:43 Body Mass Index 26.57 (68.04 kg, 160.02 cm) jl7 16:43 Pain Scale: Adult jl7 ED Course: 16:42 Patient arrived in ED. mb9 16:42 Mee Nicholson MD is Attending Physician. sp3 16:43 Cammie Sullivan, RN is Primary Nurse. jl7 16:46 Triage completed. jl7 16:46 Arm band placed on right wrist. jl7 17:06 Bed in low position. Call light in reach. Side rails up X 1. Client placed on mb9 continuous cardiac and pulse oximetry monitoring. NIBP monitoring applied. cafeteria monitor on. 17:14 Spine Thoracic Ap/Lat XRAY In Process Unspecified. EDMS 17:17 CT Head C Spine In Process Unspecified. EDMS 18:15 No provider procedures requiring assistance completed. IV discontinued, intact, mb9 bleeding controlled, No redness/swelling at site. Pressure dressing applied. Administered Medications: No medications were administered Medication: 17:06 VIS not applicable for this client. mb9 Outcome: 17:56 Discharge ordered by . buddy 18:16 Discharged to home ambulatory. [email or web address] 18:16 Condition: stable 18:16 Discharge instructions given to patient, Instructed on discharge instructions, follow up and referral plans. Demonstrated understanding of instructions, follow-up care. 18:17 Patient left the ED. aa5 Signatures: Dispatcher [employer] EDLinh Hennessy RN RN aa5 Cammie Sullivan RN RN jl7 Mee Nicholson MD MD sp3 Mali Paredes RN RN mb9
[2022-08-03 19:37] VITALS: BP 129/86; TEMP 97.9; O2SAT 100
== END 2022-08-03 18:17 | disposition home or self-care (01) ==
LOC: ER 16:35
DX: S09.90XA Unspecified injury of head, initial encounter (principal); R55 Syncope and collapse; R45.7 State of emotional shock and stress, unspecified
CPT/HCPCS: 70450; 72070; 72125

== ENCOUNTER → 2023-03-31 | Emergency (ER) | payer SELFPAY ==
[~2023-03-31] MED LIST: KETOROLAC 30 MG/ML INJ ONE; POTASSIUM CL SA 10 MEQ TAB PO ONE
[2023-03-31 19:33] LABS: Absolute Lymphocytes (CBC) 0.6 K/uL (0.7-4.9); Hematocrit 37.5 % (36.0-45.0); Lymphocytes % 5.6 % (15.3-44.8); MCV 85.6 fL (80-100); MPV 9.1 fL (7.6-11.3); Platelets 188 thou/uL (152-406); RBC Red Blood Cell Count 4.38 M/uL (3.86-4.86)
[2023-03-31 20:02] LABS: Potassium 3.3 mEq/L (3.5-5.1)
--- NOTE | 2023-03-31 20:25 | EDPHYS ---
Physician Documentation [facility] Name: Donal Langston Age: 32 yrs Sex: Female : 1990 Arrival Date: 03/31/2023 Time: 18:17 Bed 17 Private MD: ED Physician Ori Rodriguez HPI: 03/31 20:48 This 32 yrs old Female presents to ER via Ambulatory with complaints of Body Pain. kb 20:48 Pt is a 32 year old female who presents for bodyaches that is worse in the joints that kb began yesterday. Denies cough, congestion and fever. States she has had chronic pain similar to this in the past, but it is worse today. 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 ROS: 20:10 Respiratory: Negative for shortness of breath, cough, wheezing, and pleuritic chest kb pain, 20:10 Constitutional: Positive for body aches, 20:10 All other systems are negative, Exam: 20:10 Constitutional: This is a well developed, well nourished patient who is awake, alert, kb and in no acute distress. Head/Face: Normocephalic, atraumatic. ENT: Moist Mucous membranes Cardiovascular: Regular rate Respiratory: Respirations even and unlabored. No increased work of breathing. Talking in full sentences Skin: Warm, dry with normal turgor. Normal color. MS/ Extremity: Pulses equal, no cyanosis. Neurovascular intact. Full, normal range of motion. Neuro: Awake and alert, GCS 15, oriented to person, place, time, and situation. Moves all extremities. Normal gait. Vital Signs: 19:03 BP 116 / 86; Pulse 91; Resp 16; Temp 98.2(O); Pulse Ox 99% on R/A; Weight 72.57 kg (R); km8 Height 5 ft. 3 in. (R); Pain 7/10; 20:06 BP 120 / 80; Pulse 88; Resp 18; Pulse Ox 99% on R/A; cm10 19:03 Body Mass Index 28.34 (72.57 kg, 160.02 cm) km8 19:03 Pain Scale: Adult km8 MDM: 18:27 Patient medically screened. kb 20:10 Differential diagnosis: flu, covid, abnormal electrolytes, dehydration, chronic pain. kb Data reviewed: vital signs, nurses notes. Counseling: I had a detailed discussion with the patient and/or guardian regarding the historical points, exam findings, and any diagnostic results supporting the discharge/admit diagnosis, lab results, the need for outpatient follow up, a family practitioner, to return to the emergency department if symptoms worsen or persist or if there are any questions or concerns that arise at home. 03/31 18:35 Order name: CBC with Diff; Complete Time: 19:39 kb 03/31 18:35 Order name: Basic Metabolic Panel; Complete Time: 20:04 kb 03/31 18:35 Order name: Flu; Complete Time: 19:52 kb 03/31 18:35 Order name: COVID-19 SARS RT PCR; Complete Time: 20:10 kb Administered Medications: 20:05 Drug: Ketorolac IVP 15 mg IVP once Route: IVP; Site: right antecubital; cm10 20:50 Follow up: Response: No adverse reaction; Marked relief of symptoms; Pain is decreased vc1 20:49 Drug: Potassium Chloride PO 20 mEq PO once Route: PO; vc1 20:49 Follow up: Response: Medication administered at discharge. vc1 Disposition Summary: 03/31/23 20:24 Discharge Ordered Notes: Location: Home kb Condition: Stable kb Diagnosis - SARS-associated coronavirus as the cause of diseases classified elsewhere kb Followup: kb - With: Emergency Department - When: As needed - Reason: Worsening of condition Followup: kb - With: Private Physician - When: 2 - 3 days - Reason: Recheck today's complaints, Continuance of care, Re-evaluation by your physician Discharge Instructions: - Discharge Summary Sheet kb - COVID-19 kb - Viral Illness, Adult kb Forms: - Work release form kb - Medication Reconciliation Form kb - Thank You Letter kb - Antibiotic Education kb - Prescription Opioid Use kb - Patient Portal Instructions kb - Leadership Thank You Letter kb Signatures: Dispatcher [employer] EDJuana Fontana FNP-C CORPORATE TRAVEL COORDINATOR-Ckb Shagufta Truong, RN RN vc1 Halima Andrade, RN RN cm10 Chanell Lyman, RN RN km8
--- NOTE | 2023-03-31 20:25 | ER ---
Nurse's Notes [facility] Name: Donal Langston Age: 32 yrs Sex: Female : 1990 Arrival Date: 03/31/2023 Time: 18:17 Bed 17 Private MD: Diagnosis: SARS-associated coronavirus as the cause of diseases classified elsewhere Presentation: 03/31 19:03 Chief complaint: Patient states: joint pain all over body that flared up last night km8 around 2100; pt has chronic pain. Coronavirus screen: Client denies travel out of the [place] in the last 14 days. Ebola Screen: No symptoms or risks identified at this time. Initial Sepsis Screen: Does the patient meet any 2 criteria? No. Patient's initial sepsis screen is negative. Does the patient have a suspected source of infection? No. Patient's initial sepsis screen is negative. Risk Assessment: Do you want to hurt yourself or someone else? Patient reports no desire to harm self or others. Onset of symptoms was March 30, 2023 at 21:00. 19:03 Method Of Arrival: Ambulatory km8 19:03 Acuity: DELIA 3 km8 Triage Assessment: 19:04 General: Appears in no apparent distress. uncomfortable, Behavior is calm, cooperative, km8 appropriate for age. Pain: Complains of pain in all joints Pain currently is 7 out of 10 on a pain scale. Quality of pain is described as aching. EENT: No signs and/or symptoms were reported regarding the EENT system. Neuro: Level of Consciousness is awake, alert, obeys commands, Oriented to person, place, time, situation. Cardiovascular: Denies chest pain, shortness of breath, Capillary refill < 3 seconds Patient's skin is warm and dry. Respiratory: Airway is patent Respiratory effort is even, unlabored, Respiratory pattern is regular, symmetrical. GI: No signs and/or symptoms were reported involving the gastrointestinal system. : No signs and/or symptoms were reported regarding the genitourinary system. Derm: No signs and/or symptoms reported regarding the dermatologic system. Skin is intact, is healthy with good turgor, Skin is dry, Skin is pink, warm \T\ dry. normal, Skin temperature is warm. Musculoskeletal: Range of motion: intact in all extremities, Reports pain in all joints. 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 Screenin:09 [facility] ED Fall Risk Assessment (Adult) History of falling in the last 3 months, cm10 including since admission No falls in past 3 months (0 pts) Confusion or Disorientation No (0 pts) Intoxicated or Sedated No (0 pts) Impaired Gait No (0 pts) Mobility Assist Device Used No (0 pt) Altered Elimination No (0 pt) Score/Fall Risk Level 0 - 2 = Low Risk Oriented to surroundings, Maintained a safe environment, Hourly rounding (assess needs \T\ fall precautionary measures) done. Abuse screen: Denies threats or abuse. Denies injuries from another. Nutritional screening: No deficits noted. Tuberculosis screening: No symptoms or risk factors identified. Assessment: 20:09 General: Appears in no apparent distress. comfortable, Behavior is calm, cooperative. cm10 Neuro: No deficits noted. Level of Consciousness is awake, alert, obeys commands, Oriented to person, place, time, situation. Cardiovascular: No deficits noted. Denies chest pain, shortness of breath, Patient's skin is warm and dry. Respiratory: No deficits noted. Airway is patent Respiratory effort is even, unlabored, Respiratory pattern is regular, symmetrical. GI: No deficits noted. No signs and/or symptoms were reported involving the gastrointestinal system. : No deficits noted. No signs and/or symptoms were reported regarding the genitourinary system. EENT: No deficits noted. No signs and/or symptoms were reported regarding the EENT system. Derm: No deficits noted. No signs and/or symptoms reported regarding the dermatologic system. Skin is intact, Skin is pink, warm \T\ dry. Musculoskeletal: No deficits noted. No signs and/or symptoms reported regarding the musculoskeletal system. Range of motion: intact in all extremities. 20:52 Reassessment: Patient and/or family updated on plan of care and expected duration. Pain vc1 level reassessed. Patient is alert, oriented x 3, equal unlabored respirations, skin warm/dry/pink. Patient states feeling better. Patient states symptoms have improved. Vital Signs: 19:03 BP 116 / 86; Pulse 91; Resp 16; Temp 98.2(O); Pulse Ox 99% on R/A; Weight 72.57 kg (R); km8 Height 5 ft. 3 in. (R); Pain 7/10; 20:06 BP 120 / 80; Pulse 88; Resp 18; Pulse Ox 99% on R/A; cm10 19:03 Body Mass Index 28.34 (72.57 kg, 160.02 cm) km8 19:03 Pain Scale: Adult [facility] ED Course: 18:26 Patient arrived in ED. ae5 18:27 Juana Ureña FNP-C [facility]. kb 18:27 Ori Rodrgiuez MD is Attending Physician. kb 19:04 Triage completed. km8 19:04 Arm band placed on right wrist. km8 19:21 COVID-19 SARS RT PCR Sent. bc6 19:21 Flu Sent. bc6 19:21 Basic Metabolic Panel Sent. bc6 19:21 CBC with Diff Sent. bc6 19:21 Inserted saline lock: 22 gauge in right antecubital area, using aseptic technique. bc6 Blood collected. 20:09 Patient has correct armband on for positive identification. Bed in low position. Call cm10 light in reach. Provided Education on: ER process and procedures. . 20:09 Notified Nurse Practitioner and/or Physician Roller Man of a critical lab result(s), vc1 covid positive. 20:51 No provider procedures requiring assistance completed. IV discontinued, intact, vc1 bleeding controlled, No redness/swelling at site. Pressure dressing applied. Administered Medications: 20:05 Drug: Ketorolac IVP 15 mg IVP once Route: IVP; Site: right antecubital; cm10 20:50 Follow up: Response: No adverse reaction; Marked relief of symptoms; Pain is decreased vc1 20:49 Drug: Potassium Chloride PO 20 mEq PO once Route: PO; vc1 20:49 Follow up: Response: Medication administered at discharge. vc1 Medication: 20:09 VIS not applicable for this client. cm10 Outcome: 20:24 Discharge ordered by . kb 20:51 Discharged to home ambulatory, with friend, vc1 20:51 Condition: good 20:51 Discharge instructions given to patient, Instructed on discharge instructions, follow up and referral plans. medication usage, Demonstrated understanding of instructions, follow-up care, 20:53 Patient left the ED. vc1 Signatures: Juana Ureña, CHIEF CUSTOMER OFFICER-C CHIEF CUSTOMER OFFICER-Ckb Shagufta Truong RN RN vc1 Olivia Coffey Clarissa, RN RN cm10 Chanell Lyman RN RN km8 Paz Tillman ae5
[2023-04-01 02:06] VITALS: BP 120/80; TEMP 98.2; O2SAT 99
== END ==
LOC: ER 18:17
DX: U07.1 COVID-19 (principal)
CPT/HCPCS: 36415; 80048; 85025; 87635; 87804